=== PATIENT | female | born 1995 | race Caucasian/White ===

== ENCOUNTER 2018-06-06 07:08 | Inpatient (IN) | payer OTHER ==
[2018-06-06] MEDS ORDERED: Misoprostol 25 MCG (1/4 of 100 MCG) Tab ONE ×2 (08:05→11:34)
[2018-06-06] MEDS ORDERED: Nalbuphine 20 MG/ML 1 ML Syringe IVPUSH PRN (08:15)
[2018-06-06] MEDS ORDERED: Sodium Chloride 0.9% 10 ML Syringe FLUSH PRN (08:15)
[2018-06-06] MEDS ORDERED: Oxytocin/Lactated Ringers 10 UNIT/1,000 ML BAG IV SCH ×2 (08:15)
[2018-06-06] MEDS ORDERED: Ampicillin 2 GM in Sodium Chloride 0.9% 100 ML IV ONE (08:15)
[2018-06-06] MEDS ORDERED: Misoprostol 25 MCG (1/4 of 100 MCG) Tab VAG ONE (08:20)
--- NOTE | 2018-06-06 08:33 | PCM.LDHP ---
L&D History of Present Illness - General Date of Service: 06/06/18 Admit Problem/Dx: Patient Status Order with Admit Dx/Problem 06/06/18 08:15 Patient Status [ADT] Routine Admission Diagnosis/Problem Admission Diagnosis/Problem Source of Information: Patient History Limitations: Reports: No Limitations - History of Present Illness Introduction:: 23 y/o YOLI 06/13/2018 EGA [id number] presented to L&D for Induction of labor. GBS Positive INITIAL LABS 12/15/17 A Positive AB Screen negative H/H 13.0/37.9 Plt [id number] Rubella immune VDRL/RPR nonreactive Urine culture [id number] Garnerella vaginalis HBsAg Negative HIV Negative gc/ct PROBE NEGATIVE 03/21/2018 hGB 12.1 plt [id number] obgs 107 05/24/2018 gbs POSITIVE Pain Score: 0 - Related Data Allergies/Adverse Reactions: Allergies Allergy/AdvReac Type Severity Reaction Status Date / Time No Known Allergies Allergy Verified 11/07/13 20:34 Home Medications: Home Meds Benzocaine/Menthol [Dermoplast Pain Relief [place]] 1 canister TOP ASDIRECTED PRN #1 canister 11/17/13 [Rx] Docusate Sodium [Colace] 100 mg PO BID PRN #12 cap 11/17/13 [Rx] Ibuprofen [Motrin] 600 mg PO Q4H PRN #16 tablet 11/17/13 [Rx] Lanolin [Lansinoh HPA] 1 gm TOP ASDIRECTED PRN #1 11/17/13 [Rx] Witch Joselin [Tucks] 1 pad TOP ASDIRECTED PRN #1 pad 11/17/13 [Rx] Past Medical History HEENT History: Reports: Other (See Below) (tonsillectomy 2004) Genitourinary History: Reports: Other (See Below) (H/O UTIs in ) : 4 Para: 2 (2011) LMP (Approximate): Other (See Below) (one miscarriage) H&P Review of Systems - Review of Systems: Review Of Systems: See Below General: Reports: No Symptoms HEENT: Reports: No Symptoms Pulmonary: Reports: No Symptoms Cardiovascular: Reports: No Symptoms Gastrointestinal: Reports: No Symptoms Genitourinary: Reports: No Symptoms Musculoskeletal: Reports: No Symptoms Skin: Reports: No Symptoms Psychiatric: Reports: No Symptoms Neurological: Reports: No Symptoms Hematologic/Lymphatic: Reports: No Symptoms Immunologic: Reports: No Symptoms L&D Exam - Exam Exam: See Below - OB Specific Fundal Height In cm: 38 Movement: Active Heart Tones: Present Heart Tones per Min: 140 Heart Rate (FHR) Variability: Moderate (6-25 bmp) Presentation: Vertex - Lenz Score Lenz Score Cervix Position: Posterior Lenz Score Consistency: Soft Lenz Score Effacement: 0-30% Lenz Score Dilation: 1-2 cm Lenz Score 's Station: -3 Lenz Score Total: 3 - Exam General: Alert, Oriented HEENT: Conjunctiva Clear, Mucosa Moist & [place] Neck: Supple, Trachea Midline Lungs: Clear to Auscultation, Normal Respiratory Effort Cardiovascular: Regular Rate, Regular Rhythm GI/Abdominal Exam: Normal Bowel Sounds, Soft Genitourinary: Normal external exam Extremities: Normal Inspection, Normal Range of Motion, Non-Tender, No Pedal Edema, Normal Capillary Refill Skin: Warm, Dry, Intact Neurological: Reflexes Equal Bilateral Psychiatric: Alert, Normal Affect, Normal Mood - Problem List (1) 38 weeks gestation of SNOMED Code(s): 21677797 ICD Code: Z3A.38 - 38 WEEKS GESTATION OF Status: Acute Current Visit: Yes (2) GBS carrier SNOMED Code(s): 6240564370492 ICD 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 - CARRIER OF GROUP B STREPTOCOCCUS Status: Acute Current Visit: Yes Problem List Initiated/Reviewed/Updated: No Orders Last 24hrs: Active Orders 24 hr Category Date Time Status Patient Status [ADT] Routine ADT 06/06/18 08:15 Active Activity as Tolerated [RC] PFP Care 06/06/18 08:15 Active Communication Order [RC] ASDIRECTED Care 06/06/18 08:15 Active Heart Tones [RC] ASDIRECTED Care 06/06/18 08:16 Active Non Stress Test [RC] PER UNIT ROUTINE Care 06/06/18 08:15 Active Notify Provider [RC] PFP Care 06/06/18 08:15 Active Notify Provider [RC] PRN Care 06/06/18 08:15 Active Peripheral IV Care [RC] . DIRECTED Care 06/06/18 08:16 Active Vital Signs [RC] PER UNIT ROUTINE Care 06/06/18 08:15 Active Regular Diet [DIET] Diet 06/06/18 Breakfast Active CBC WITH AUTO DIFF [HEME] Stat Lab 06/06/18 08:15 Ordered RAPID PLASMA REAGIN,RPR [CHEM] Routine Lab 06/06/18 08:15 Ordered TYPE AND SCREEN [BBK] Stat Lab 06/06/18 08:15 Ordered Ampicillin 1 gm Med 06/06/18 12:45 Ordered Sodium Chloride 0.9% [Normal Saline] 100 ml IV Q4H Ampicillin 2 gm Med 06/06/18 08:15 Ordered Sodium Chloride 0.9% [Normal Saline] 100 ml IV ONETIME Lactated Ringers [Ringers, Lactated] 1,000 ml Med 06/06/18 08:15 Ordered IV ASDIRECTED Nalbuphine [Nubain] Med 06/06/18 08:15 Ordered 10 mg IVPUSH Q2H PRN Oxytocin/Lactated Ringers [Pitocin in LR 10 Units/1,000 Med 06/06/18 08:15 Ordered ML] 10 unit in 1,000 ml IV .CONTINUOUS Oxytocin/Lactated Ringers [Pitocin in LR 10 Units/1,000 Med 06/06/18 08:15 Ordered ML] 10 unit in 1,000 ml IV TITRATE Sodium Chloride 0.9% [Saline Flush] Med 06/06/18 08:15 Ordered 10 ml FLUSH ASDIRECTED PRN Electronic Heart Tones Ext w TOCO [WOMSER] Oth 06/06/18 08:15 Ordered Routine Electronic Heart Tones Internal [WOMSER] Per Unit Oth 06/06/18 08:15 Ordered Routine Peripheral IV Insertion Adult [OM.PC] Routine Oth 06/06/18 08:15 Ordered Resuscitation Status Routine Resus Stat 06/06/18 08:15 Ordered Assessment/Plan Comment:: Plan induction and delivery.
[2018-06-06] MEDS: Lactated Ringers 1,000 ML IV SCH ×3 (08:35→15:07)
--- NOTE | 2018-06-06 08:53 | PCM.PREANE ---
Preanesthetic Assessment - Procedure Proposed Procedure: TERRI - Anesthesia/Transfusion/Family Hx Anesthesia History: Prior Anesthesia Without Reaction Family History of Anesthesia Reaction: No Transfusion History: No Prior Transfusion(s) - Review of Systems General: No Symptoms Pulmonary: No Symptoms Cardiovascular: No Symptoms Gastrointestinal: Other (GERD with ) Neurological: No Symptoms Other: Reports: None - Physical Assessment NPO Status Date: 06/06/18 NPO Status Time: 07:00 Pulse: 102 O2 Sat by Pulse Oximetry: 98 Respiratory Rate: 20 Blood Pressure: 141/87 Temperature: 37.0 C ASA Class: 2 Mental Status: Alert & Oriented x3 Airway Class: Mallampati = 1 Dentition: Reports: Normal Dentition Thyro-Mental Finger Breadths: 3 Mouth Opening Finger Breadths: 3 ROM/Head Extension: Full Lungs: Clear to Auscultation, Normal Respiratory Effort Cardiovascular: Regular Rate, Regular Rhythm - Allergies Allergies/Adverse Reactions: Allergies Allergy/AdvReac Type Severity Reaction Status Date / Time No Known Allergies Allergy Verified 11/07/13 20:34 - Blood Blood Available: No Product(s) Available: None - Anesthesia Plan Pre-Op Medication Ordered: None - Acknowledgements Anesthesia Type Planned: Epidural Pt an Appropriate Candidate for the Planned Anesthesia: Yes Alternatives and Risks of Anesthesia Discussed w Pt/Guardian: Yes Pt/Guardian Understands and Agrees with Anesthesia Plan: Yes PreAnesthesia Questionnaire HEENT History: Reports: Other (See Below) (tonsillectomy 2004) Genitourinary History: Reports: Other (See Below) (H/O UTIs in ) - HOME MEDS Home Medications: Home Meds Benzocaine/Menthol [Dermoplast Pain Relief [place]] 1 canister TOP ASDIRECTED PRN #1 canister 11/17/13 [Rx] Docusate Sodium [Colace] 100 mg PO BID PRN #12 cap 11/17/13 [Rx] Ibuprofen [Motrin] 600 mg PO Q4H PRN #16 tablet 11/17/13 [Rx] Lanolin [Lansinoh HPA] 1 gm TOP ASDIRECTED PRN #1 11/17/13 [Rx] Witch Joselin [Tucks] 1 pad TOP ASDIRECTED PRN #1 pad 11/17/13 [Rx] - CURRENT (IN HOUSE) MEDS Current Meds: Current Medications Ampicillin Sodium 1 gm/ Sodium (Chloride) 100 mls @ 200 mls/hr IV Q4H JENNIFER Lactated Ringer's (Ringers, Lactated) 1,000 mls @ 100 mls/hr IV ASDIRECTED JENNIFER Last Admin: 06/06/18 08:35 Dose: 100 mls/hr Oxytocin/Lactated Ringer's (Pitocin In Lr 10 Units/1,000 Ml) 10 unit in 1,000 mls @ 12 mls/hr IV TITRATE JENNIFER; Protocol Oxytocin/Lactated Ringer's (Pitocin In Lr 10 Units/1,000 Ml) 10 unit in 1,000 mls @ 100 mls/hr IV .CONTINUOUS JENNIFER Nalbuphine HCl (Nubain) 10 mg IVPUSH Q2H PRN PRN Reason: pain Sodium Chloride (Saline Flush) 10 ml FLUSH ASDIRECTED PRN PRN Reason: Keep Vein Open Discontinued Medications Ampicillin Sodium 2 gm/ Sodium (Chloride) 100 mls @ 200 mls/hr IV ONETIME ONE Stop: 06/06/18 08:44 Last Admin: 06/06/18 08:35 Dose: 200 mls/hr Misoprostol (Cytotec) Confirm Administered Dose 50 mcg .ROUTE .STK-MED ONE Stop: 06/06/18 08:06 Last Admin: 06/06/18 08:35 Dose: Not Given Misoprostol (Cytotec) 25 mcg VAG ONETIME ONE Stop: 06/06/18 08:21 Last Admin: 06/06/18 08:07 Dose: 25 mcg
[2018-06-06] MEDS ORDERED: ePHEDrine 50 MG/ML SDV IVPUSH PRN (09:01)
[2018-06-06] MEDS ORDERED: fentaNYL 100 MCG/2 ML SDV EPIDUR PRN (09:01)
[2018-06-06] MEDS ORDERED: diphenhydrAMINE 50 MG/ML SDV IVPUSH PRN (09:01)
[2018-06-06] MEDS ORDERED: Ondansetron 4 MG/2 ML SDV IVPUSH PRN (09:07)
[2018-06-06] MEDS ORDERED: fentaNYL/Bupivacaine-NS 2 MCG/ML-0.125%/PF 100 ML Bag EP SCH (09:15)
--- NOTE | 2018-06-06 11:43 | PCM.SN ---
- Free Text/Narrative Note: Amniotomy at 1137, clear fluid. Cervix 2-3 cm, 30% effaced, soft, posterior. vertex -2,-2. Will begin oxytocin in an hour if no carlotta contractions. Patient planning epidural. Cat I FHR
[2018-06-06] MEDS ORDERED: Ampicillin 1 GM in Sodium Chloride 0.9% 100 ML IV SCH (12:45)
--- NOTE | 2018-06-06 14:24 | PCM.SN ---
- Free Text/Narrative Note: Patient has received her epidural which is working well. Cervix is 6 cm dilated , 85% effaced, soft, posterior, vertex -1 category 1 heart rate.
[2018-06-06] MEDS ORDERED: Lidocaine 1% 30 ML SDV INJECT ONE (16:17)
--- NOTE | 2018-06-06 16:44 | PCM.DEL ---
L & D Note - General Info Date of Service: 06/06/18 Mother's Due Date: 06/13/18 - Delivery Note Labor: Augmented by ARM, Induced by Oxytocin Cervical Ripening Method: Misoprostil (25 mcg x1) Delivery Outcome: Livebirth (Male liveborn Tuesday06/06/18 at 1610 hrs. AARON no nuchal cord weight 3590 grams 7 pounds 14.6 ounces Apgars 8/9 at one and 5 minutes respectively) Infant Delivery Method: Spontaneous Vaginal Delivery-Single Delivery Mode: Spontaneous Presentation: Left Occiput Anterior (AARON) Nuchal Cord: None Prep: Povidone-Iodine (Betadine Anesthesia Type: Epidural Amniotic Fluid Description: Clear Episiotomy Type: None Laceration: 1st Degree (Left and superior to the urethral meatus, catheter placed in urethral meatus during repair to avoid damaging urethra. Urine clear and yellow.) Suture type: Other (Monocryl 3-0) Suture size: 3-0 Placenta: Intact, Spontaneous (1613 hrs. on Tuesday06/06/18 examined and intact) Cord: 3 Vessels Estimated Blood Loss: 500 Resuscitation Needed: No : Suctioned, Bulb Syringe, Stimulated, Warmed, [place] Used, Warmer Used Provider: Kostas Thurman Score 1 min: 8 Score 5 min: 9 - General Info Date of Service: 06/06/18 Functional Status: Reports: Pain Controlled - Review of Systems General: Reports: No Symptoms HEENT: Reports: No Symptoms Pulmonary: Reports: No Symptoms Cardiovascular: Reports: No Symptoms Gastrointestinal: Reports: No Symptoms Genitourinary: Reports: No Symptoms Musculoskeletal: Reports: No Symptoms Skin: Reports: No Symptoms Neurological: Reports: No Symptoms Psychiatric: Reports: No Symptoms - Patient Data Vitals - Most Recent: Last Vital Signs Temp 98.6 F 06/06/18 08:54 Pulse 102 H 06/06/18 08:54 Resp 20 06/06/18 08:54 BP 141/87 H 06/06/18 08:54 Pulse Ox 98 06/06/18 08:54 Weight - Most Recent: 167 lb I&O - Last 24 Hours: Intake & Output 06/06/18 06/06/18 06/06/18 06:59 14:59 22:59 Intake Total 320 Balance 320 Lab Results Last 24 Hours: Laboratory Results - last 24 hr 06/06/18 06/06/18 06/06/18 Range/Units 08:47 08:47 08:47 WBC 8.10 (3.98-10.04) K/mm3 RBC 4.00 (3.98-5.22) M/mm3 Hgb 11.5 (11.2-15.7) gm/L Hct 34.7 (34.1-44.9) % MCV 86.8 (79.4-94.8) fl MCH 28.8 (25.6-32.2) pg MCHC 33.1 (32.2-35.5) g/dl RDW Std Deviation 38.8 (36.4-46.3) fL Plt Count 142 L (182-369) K/mm3 MPV 10.7 (9.4-12.3) fl Neut % (Auto) 67.3 (34.0-71.1) % Lymph % (Auto) 22.0 (19.3-51.7) % [place] % (Auto) 9.4 (4.7-12.5) % Eos % (Auto) 1.0 (0.7-5.8) Baso % (Auto) 0.1 (0.1-1.2) % Neut # (Auto) 5.45 (1.56-6.13) K/mm3 Lymph # (Auto) 1.78 (1.18-3.74) K/mm3 [place] # (Auto) 0.76 H (0.24-0.36) K/mm3 Eos # (Auto) 0.08 (0.04-0.36) K/mm3 Baso # (Auto) 0.01 (0.01-0.08) K/mm3 RPR Non-reactive (NONREACTIVE) Blood Type A POSITIVE Gel Antibody Screen Negative Med Orders - Current: Current Medications Diphenhydramine HCl (Benadryl) 25 mg IVPUSH Q6H PRN PRN Reason: Pruritis Ephedrine Sulfate (Ephedrine Sulfate) 5 mg IVPUSH ASDIRECTED PRN PRN Reason: Hypotension Fentanyl (Sublimaze) 100 mcg EPIDUR Q3H PRN PRN Reason: Pain Last Admin: 06/06/18 14:02 Dose: 100 mcg Fentanyl/Bupivacaine HCl ([place]akdsefu-Rkfqs-Ro 2 Mcg/Ml-0.125%) 100 ml EP ASDIRECTED JENNIFER Last Admin: 06/06/18 14:03 Dose: 100 ml Ampicillin Sodium 1 gm/ Sodium (Chloride) 100 mls @ 200 mls/hr IV Q4H JENNIFER Last Admin: 06/06/18 12:51 Dose: 200 mls/hr Lactated Ringer's (Ringers, Lactated) 1,000 mls @ 100 mls/hr IV ASDIRECTED JENNIFER Last Admin: 06/06/18 15:07 Dose: 100 mls/hr Oxytocin/Lactated Ringer's (Pitocin In Lr 10 Units/1,000 Ml) 10 unit in 1,000 mls @ 12 mls/hr IV TITRATE JENNIFER; Protocol Last Admin: 06/06/18 15:09 Dose: 2 munits/min, 12 mls/hr Oxytocin/Lactated Ringer's (Pitocin In Lr 10 Units/1,000 Ml) 10 unit in 1,000 mls @ 100 mls/hr IV .CONTINUOUS JENNIFER Nalbuphine HCl (Nubain) 10 mg IVPUSH Q2H PRN PRN Reason: pain Ondansetron HCl (Zofran) 4 mg IVPUSH ONETIME PRN PRN Reason: Nausea/Vomiting Sodium Chloride (Saline Flush) 10 ml FLUSH ASDIRECTED PRN PRN Reason: Keep Vein Open Discontinued Medications Ampicillin Sodium 2 gm/ Sodium (Chloride) 100 mls @ 200 mls/hr IV ONETIME ONE Stop: 06/06/18 08:44 Last Admin: 06/06/18 08:35 Dose: 200 mls/hr Lidocaine HCl (Xylocaine-Mpf 1%) 50 ml INJECT ONETIME ONE Stop: 06/06/18 16:18 Misoprostol (Cytotec) Confirm Administered Dose 50 mcg .ROUTE .STK-MED ONE Stop: 06/06/18 08:06 Last Admin: 06/06/18 08:35 Dose: Not Given Misoprostol (Cytotec) 25 mcg VAG ONETIME ONE Stop: 06/06/18 08:21 Last Admin: 06/06/18 08:07 Dose: 25 mcg Misoprostol (Cytotec) Confirm Administered Dose 25 mcg .ROUTE .STK-MED ONE Stop: 06/06/18 11:35 - Exam General: Alert, Oriented HEENT: Pupils Equal, Mucous Membr. Moist/[place] Neck: Supple Lungs: Clear to Auscultation, Normal Respiratory Effort Cardiovascular: Regular Rate, Regular Rhythm GI/Abdominal Exam: Normal Bowel Sounds (Female) Exam: Normal External Exam Extremities: Normal Inspection, Normal Range of Motion, Non-Tender, No Pedal Edema, Normal Capillary Refill Skin: Warm, Dry, Intact Psy/Mental Status: Alert, Normal Affect, Normal Mood - Problem List & Annotations (1) 38 weeks gestation of SNOMED Code(s): 43410877 Code(s): Z3A.38 - 38 WEEKS GESTATION OF Status: Acute Current Visit: Yes (2) GBS carrier SNOMED Code(s): 4843143465908 Code(s): Z22.330 - CARRIER OF GROUP B STREPTOCOCCUS Status: Acute Current Visit: Yes (3) Encounter for full-term uncomplicated delivery SNOMED Code(s): 09874640, 698503892 Code(s): O80 - ENCOUNTER FOR FULL-TERM UNCOMPLICATED DELIVERY Status: Acute Current Visit: Yes (4) First degree perineal laceration SNOMED Code(s): 00989970 Code(s): O70.0 - FIRST DEGREE PERINEAL LACERATION DURING DELIVERY Status: Acute Current Visit: Yes - Problem List Review Problem List Initiated/Reviewed/Updated: No - My Orders Last 24 Hours: My Active Orders 06/06/18 08:15 Patient Status [ADT] Routine Activity as Tolerated [RC] PFP Communication Order [RC] ASDIRECTED Non Stress Test [RC] PER UNIT ROUTINE Notify Provider [RC] PFP Notify Provider [RC] PRN Vital Signs [RC] PER UNIT ROUTINE Lactated Ringers [Ringers, Lactated] 1,000 ml IV ASDIRECTED Nalbuphine [Nubain] 10 mg IVPUSH Q2H PRN Oxytocin/Lactated Ringers [Pitocin in LR 10 Units/1,000 ML] 10 unit in 1,000 ml IV .CONTINUOUS Oxytocin/Lactated Ringers [Pitocin in LR 10 Units/1,000 ML] 10 unit in 1,000 ml IV TITRATE Sodium Chloride 0.9% [Saline Flush] 10 ml FLUSH ASDIRECTED PRN Electronic Heart Tones Ext w TOCO [WOMSER] Routine Electronic Heart Tones Internal [WOMSER] Per Unit Routine Peripheral IV Insertion Adult [OM.PC] Routine Resuscitation Status Routine 06/06/18 08:16 Heart Tones [RC] ASDIRECTED Peripheral IV Care [RC] . DIRECTED 06/06/18 12:45 Ampicillin 1 gm Sodium Chloride 0.9% [Normal Saline] 100 ml IV Q4H 06/06/18 Breakfast Regular Diet [DIET] - Plan Plan:: Plan induction and delivery.
[2018-06-06] MEDS ORDERED: Benzocaine/Menthol 20%-0.5% Spray 56 GM Canister TOP PRN (16:53)
[2018-06-06] MEDS ORDERED: Witch Hazel Medicated Pads 100/Jar TOP PRN (16:53)
[2018-06-06] MEDS ORDERED: Acetaminophen/oxyCODONE 325-5 MG Tab PO PRN (16:53)
[2018-06-06] MEDS ORDERED: Acetaminophen 325 MG Tab PO PRN (16:53)
[2018-06-06] MEDS ORDERED: Docusate Sodium 100 MG Cap PO PRN (16:53)
[2018-06-06] MEDS ORDERED: Ibuprofen 600 MG Tab PO PRN (16:53)
[2018-06-06] MEDS ORDERED: Lanolin 100% Cream 7 GM Tube TOP PRN (16:53)
[2018-06-06] MEDS ORDERED: Misoprostol 200 MCG Tab PO ONE (17:20)
[2018-06-06] MEDS: Misoprostol 200 MCG Tab PO SCH (19:01)
[2018-06-06] MEDS ORDERED: Lidocaine 1.5% with EPINEPHrine 1:200,000 5 ML Amp ONE (22:00)
[2018-06-06] MEDS ORDERED: Bupivacaine 0.25% 10 ML SDV ONE (22:00)
[2018-06-07] MEDS: Misoprostol 200 MCG Tab PO SCH (00:56)
--- NOTE | 2018-06-07 08:08 | PCM.DCSUM1 ---
Discharge Summary - Hospital Course Free Text/Narrative:: [facility] LIVE L/D Delivery Note Patient Name: GALO SMTIH Date of : 89 Patient Status: Inpatient Attending Provider: Kostas Thurman Date: 06/06/18 16:35 Initialization Date: 06/06/18 16:35 L & D Note - General Info Date of Service: 06/06/18 Mother's Due Date: 06/13/18 - Delivery Note Labor: Augmented by ARM, Induced by Oxytocin Cervical Ripening Method: Misoprostil (25 mcg x1) Delivery Outcome: Livebirth (Male liveborn Tuesday06/06/18 at 1610 hrs. AARON no nuchal cord weight 3590 grams 7 pounds 14.6 ounces Apgars 8/9 at one and 5 minutes respectively) Delivery Method: Spontaneous Vaginal Delivery-Single Infant Delivery Mode: Spontaneous Presentation: Left Occiput Anterior (AARON) Nuchal Cord: None Prep: Povidone-Iodine (Betadine Anesthesia Type: Epidural Amniotic Fluid Description: Clear Episiotomy Type: None Laceration: 1st Degree (Left and superior to the urethral meatus, catheter placed in urethral meatus during repair to avoid damaging urethra. Urine clear and yellow.) Suture type: Other (Monocryl 3-0) Suture size: 3-0 Placenta: Intact, Spontaneous (1613 hrs. on Tuesday06/06/18 examined and intact) Cord: 3 Vessels Estimated Blood Loss: 500 Resuscitation Needed: No [place]: Suctioned, Bulb Syringe, Stimulated, Warmed, [place] Used, Warmer Used Provider: Kostas Thurman Score 1 min: 8 Score 5 min: 9 - General Info Date of Service: 06/06/18 Functional Status: Reports: Pain Controlled - Review of Systems General: Reports: No Symptoms HEENT: Reports: No Symptoms Pulmonary: Reports: No Symptoms Cardiovascular: Reports: No Symptoms Gastrointestinal: Reports: No Symptoms Genitourinary: Reports: No Symptoms Musculoskeletal: Reports: No Symptoms Skin: Reports: No Symptoms Neurological: Reports: No Symptoms Psychiatric: Reports: No Symptoms - Patient Data Vitals - Most Recent: Last Vital Signs Temp 98.6 F 02/12/19 08:54 Pulse 102 H 06/06/18 08:54 Resp 20 06/06/18 08:54 BP 141/87 H 06/06/18 08:54 Pulse Ox 98 06/06/18 08:54 Weight - Most Recent: 167 lb I&O - Last 24 Hours: Intake & Output 06/06/18 06/06/18 06/06/18 06:59 14:59 22:59 Intake Total 320 Balance 320 Lab Results Last 24 Hours: Laboratory Results - last 24 hr 06/06/18 06/06/18 06/06/18 Range/Units 08:47 08:47 08:47 WBC 8.10 (3.98-10.04) K/mm3 RBC 4.00 (3.98-5.22) M/mm3 Hgb 11.5 (11.2-15.7) gm/L Hct 34.7 (34.1-44.9) % MCV 86.8 (79.4-94.8) fl MCH 28.8 (25.6-32.2) pg MCHC 33.1 (32.2-35.5) g/dl RDW Std Deviation 38.8 (36.4-46.3) fL Plt Count 142 L (182-369) K/mm3 MPV 10.7 (9.4-12.3) fl Neut % (Auto) 67.3 (34.0-71.1) % Lymph % (Auto) 22.0 (19.3-51.7) % [place] % (Auto) 9.4 (4.7-12.5) % Eos % (Auto) 1.0 (0.7-5.8) Baso % (Auto) 0.1 (0.1-1.2) % Neut # (Auto) 5.45 (1.56-6.13) K/mm3 Lymph # (Auto) 1.78 (1.18-3.74) K/mm3 [place] # (Auto) 0.76 H (0.24-0.36) K/mm3 Eos # (Auto) 0.08 (0.04-0.36) K/mm3 Baso # (Auto) 0.01 (0.01-0.08) K/mm3 RPR Non-reactive (NONREACTIVE) Blood Type A POSITIVE Gel Antibody Screen Negative Med Orders - Current: Current Medications Diphenhydramine HCl (Benadryl) 25 mg IVPUSH Q6H PRN PRN Reason: Pruritis Ephedrine Sulfate (Ephedrine Sulfate) 5 mg IVPUSH ASDIRECTED PRN PRN Reason: Hypotension Fentanyl (Sublimaze) 100 mcg EPIDUR Q3H PRN PRN Reason: Pain Last Admin: 06/06/18 14:02 Dose: 100 mcg Fentanyl/Bupivacaine HCl (Lfyqedrd-Zcgrh-Jn 2 Mcg/Ml-0.125%) 100 ml EP ASDIRECTED JENNIFER Last Admin: 06/06/18 14:03 Dose: 100 ml Ampicillin Sodium 1 gm/ Sodium (Chloride) 100 mls @ 200 mls/hr IV Q4H JENNIFER Last Admin: 06/06/18 12:51 Dose: 200 mls/hr Lactated Ringer's (Ringers, Lactated) 1,000 mls @ 100 mls/hr IV ASDIRECTED JENNIFER Last Admin: 06/06/18 15:07 Dose: 100 mls/hr Oxytocin/Lactated Ringer's (Pitocin In Lr 10 Units/1,000 Ml) 10 unit in 1,000 mls @ 12 mls/hr IV TITRATE JENNIFER; Protocol Last Admin: 06/06/18 15:09 Dose: 2 munits/min, 12 mls/hr Oxytocin/Lactated Ringer's (Pitocin In Lr 10 Units/1,000 Ml) 10 unit in 1,000 mls @ 100 mls/hr IV .CONTINUOUS JENNIFER Nalbuphine HCl (Nubain) 10 mg IVPUSH Q2H PRN PRN Reason: pain Ondansetron HCl (Zofran) 4 mg IVPUSH ONETIME PRN PRN Reason: Nausea/Vomiting Sodium Chloride (Saline Flush) 10 ml FLUSH ASDIRECTED PRN PRN Reason: Keep Vein Open Discontinued Medications Ampicillin Sodium 2 gm/ Sodium (Chloride) 100 mls @ 200 mls/hr IV ONETIME ONE Stop: 06/06/18 08:44 Last Admin: 06/06/18 08:35 Dose: 200 mls/hr Lidocaine HCl (Xylocaine-Mpf 1%) 50 ml INJECT ONETIME ONE Stop: 06/06/18 16:18 Misoprostol (Cytotec) Confirm Administered Dose 50 mcg .ROUTE .STK-MED ONE Stop: 06/06/18 08:06 Last Admin: 06/06/18 08:35 Dose: Not Given Misoprostol (Cytotec) 25 mcg VAG ONETIME ONE Stop: 06/06/18 08:21 Last Admin: 06/06/18 08:07 Dose: 25 mcg Misoprostol (Cytotec) Confirm Administered Dose 25 mcg .ROUTE .STK-MED ONE Stop: 06/06/18 11:35 - Exam General: Alert, Oriented HEENT: Pupils Equal, Mucous Membr. Moist/Esko Neck: Supple Lungs: Clear to Auscultation, Normal Respiratory Effort Cardiovascular: Regular Rate, Regular Rhythm GI/Abdominal Exam: Normal Bowel Sounds (Female) Exam: Normal External Exam Extremities: Normal Inspection, Normal Range of Motion, Non-Tender, No Pedal Edema, Normal Capillary Refill Skin: Warm, Dry, Intact Psy/Mental Status: Alert, Normal Affect, Normal Mood - Problem List & Annotations (1) 38 weeks gestation of SNOMED Code(s): 49623980 Code(s): Z3A.38 - 38 WEEKS GESTATION OF Status: Acute Current Visit: Yes (2) GBS carrier SNOMED Code(s): 3443756156349 Code(s): Z22.330 - CARRIER OF GROUP B STREPTOCOCCUS Status: Acute Current Visit: Yes (3) Encounter for full-term uncomplicated delivery SNOMED Code(s): 13879848, 372381867 Code(s): O80 - ENCOUNTER FOR FULL-TERM UNCOMPLICATED DELIVERY Status: Acute Current Visit: Yes (4) First degree perineal laceration SNOMED Code(s): 58059254 Code(s): O70.0 - FIRST DEGREE PERINEAL LACERATION DURING DELIVERY Status: Acute Current Visit: Yes - Problem List Review Problem List Initiated/Reviewed/Updated: No - My Orders Last 24 Hours: My Active Orders 06/06/18 08:15 Patient Status [ADT] Routine Activity as Tolerated [RC] PFP Communication Order [RC] ASDIRECTED Non Stress Test [RC] PER UNIT ROUTINE Notify Provider [RC] PFP Notify Provider [RC] PRN Vital Signs [RC] PER UNIT ROUTINE Lactated Ringers [Ringers, Lactated] 1,000 ml IV ASDIRECTED Nalbuphine [Nubain] 10 mg IVPUSH Q2H PRN Oxytocin/Lactated Ringers [Pitocin in LR 10 Units/1,000 ML] 10 unit in 1,000 ml IV .CONTINUOUS Oxytocin/Lactated Ringers [Pitocin in LR 10 Units/1,000 ML] 10 unit in 1,000 ml IV TITRATE Sodium Chloride 0.9% [Saline Flush] 10 ml FLUSH ASDIRECTED PRN Electronic Heart Tones Ext w TOCO [WOMSER] Routine Electronic Heart Tones Internal [WOMSER] Per Unit Routine Peripheral IV Insertion Adult [OM.PC] Routine Resuscitation Status Routine 06/06/18 08:16 Heart Tones [RC] ASDIRECTED Peripheral IV Care [RC] . DIRECTED 06/06/18 12:45 Ampicillin 1 gm Sodium Chloride 0.9% [Normal Saline] 100 ml IV Q4H 06/06/18 Breakfast Regular Diet [DIET] - Plan Plan:: Plan induction and delivery. HPI Initial Comments: [facility] LIVE L/D Delivery Note Patient Name: GALO SMITH Date of : 89 Patient Status: Inpatient Attending Provider: Kostas Thurman Date: 06/06/18 16:35 Initialization Date: 06/06/18 16:35 L & D Note - General Info Date of Service: 06/06/18 Mother's Due Date: 06/13/18 - Delivery Note Labor: Augmented by ARM, Induced by Oxytocin Cervical Ripening Method: Misoprostil (25 mcg x1) Delivery Outcome: Livebirth (Male liveborn Tuesday06/06/18 at 1610 hrs. AARON no nuchal cord weight 3590 grams 7 pounds 14.6 ounces Apgars 8/9 at one and 5 minutes respectively) Infant Delivery Method: Spontaneous Vaginal Delivery-Single Delivery Mode: Spontaneous Presentation: Left Occiput Anterior (AARON) Nuchal Cord: None Prep: Povidone-Iodine (Betadine Anesthesia Type: Epidural Amniotic Fluid Description: Clear Episiotomy Type: None Laceration: 1st Degree (Left and superior to the urethral meatus, catheter placed in urethral meatus during repair to avoid damaging urethra. Urine clear and yellow.) Suture type: Other (Monocryl 3-0) Suture size: 3-0 Placenta: Intact, Spontaneous (1613 hrs. on Tuesday06/06/18 examined and intact) Cord: 3 Vessels Estimated Blood Loss: 500 Resuscitation Needed: No [place]: Suctioned, Bulb Syringe, Stimulated, Warmed, [place] Used, Warmer Used Provider: Kostas Thurman Score 1 min: 8 Score 5 min: 9 - General Info Date of Service: 06/06/18 Functional Status: Reports: Pain Controlled - Review of Systems General: Reports: No Symptoms HEENT: Reports: No Symptoms Pulmonary: Reports: No Symptoms Cardiovascular: Reports: No Symptoms Gastrointestinal: Reports: No Symptoms Genitourinary: Reports: No Symptoms Musculoskeletal: Reports: No Symptoms Skin: Reports: No Symptoms Neurological: Reports: No Symptoms Psychiatric: Reports: No Symptoms - Patient Data Vitals - Most Recent: Last Vital Signs Temp 98.6 F 06/06/18 08:54 Pulse 102 H 06/06/18 08:54 Resp 20 06/06/18 08:54 BP 141/87 H 06/06/18 08:54 Pulse Ox 98 06/06/18 08:54 Weight - Most Recent: 167 lb I&O - Last 24 Hours: Intake & Output 06/06/18 06/06/18 06/06/18 06:59 14:59 22:59 Intake Total 320 Balance 320 Lab Results Last 24 Hours: Laboratory Results - last 24 hr 06/06/18 06/06/18 06/06/18 Range/Units 08:47 08:47 08:47 WBC 8.10 (3.98-10.04) K/mm3 RBC 4.00 (3.98-5.22) M/mm3 Hgb 11.5 (11.2-15.7) gm/L Hct 34.7 (34.1-44.9) % MCV 86.8 (79.4-94.8) fl MCH 28.8 (25.6-32.2) pg MCHC 33.1 (32.2-35.5) g/dl RDW Std Deviation 38.8 (36.4-46.3) fL Plt Count 142 L (182-369) K/mm3 MPV 10.7 (9.4-12.3) fl Neut % (Auto) 67.3 (34.0-71.1) % Lymph % (Auto) 22.0 (19.3-51.7) % [place] % (Auto) 9.4 (4.7-12.5) % Eos % (Auto) 1.0 (0.7-5.8) Baso % (Auto) 0.1 (0.1-1.2) % Neut # (Auto) 5.45 (1.56-6.13) K/mm3 Lymph # (Auto) 1.78 (1.18-3.74) K/mm3 [place] # (Auto) 0.76 H (0.24-0.36) K/mm3 Eos # (Auto) 0.08 (0.04-0.36) K/mm3 Baso # (Auto) 0.01 (0.01-0.08) K/mm3 RPR Non-reactive (NONREACTIVE) Blood Type A POSITIVE Gel Antibody Screen Negative Med Orders - Current: Current Medications Diphenhydramine HCl (Benadryl) 25 mg IVPUSH Q6H PRN PRN Reason: Pruritis Ephedrine Sulfate (Ephedrine Sulfate) 5 mg IVPUSH ASDIRECTED PRN PRN Reason: Hypotension Fentanyl (Sublimaze) 100 mcg EPIDUR Q3H PRN PRN Reason: Pain Last Admin: 06/06/18 14:02 Dose: 100 mcg Fentanyl/Bupivacaine HCl (Eqwzsvhd-Qcuiz-Fe 2 Mcg/Ml-0.125%) 100 ml EP ASDIRECTED JENNIFER Last Admin: 06/06/18 14:03 Dose: 100 ml Ampicillin Sodium 1 gm/ Sodium (Chloride) 100 mls @ 200 mls/hr IV Q4H JENNIFER Last Admin: 06/06/18 12:51 Dose: 200 mls/hr Lactated Ringer's (Ringers, Lactated) 1,000 mls @ 100 mls/hr IV ASDIRECTED JENNIFER Last Admin: 06/06/18 15:07 Dose: 100 mls/hr Oxytocin/Lactated Ringer's (Pitocin In Lr 10 Units/1,000 Ml) 10 unit in 1,000 mls @ 12 mls/hr IV TITRATE JENNIFER; Protocol Last Admin: 06/06/18 15:09 Dose: 2 munits/min, 12 mls/hr Oxytocin/Lactated Ringer's (Pitocin In Lr 10 Units/1,000 Ml) 10 unit in 1,000 mls @ 100 mls/hr IV .CONTINUOUS JENNIFER Nalbuphine HCl (Nubain) 10 mg IVPUSH Q2H PRN PRN Reason: pain Ondansetron HCl (Zofran) 4 mg IVPUSH ONETIME PRN PRN Reason: Nausea/Vomiting Sodium Chloride (Saline Flush) 10 ml FLUSH ASDIRECTED PRN PRN Reason: Keep Vein Open Discontinued Medications Ampicillin Sodium 2 gm/ Sodium (Chloride) 100 mls @ 200 mls/hr IV ONETIME ONE Stop: 06/06/18 08:44 Last Admin: 06/06/18 08:35 Dose: 200 mls/hr Lidocaine HCl (Xylocaine-Mpf 1%) 50 ml INJECT ONETIME ONE Stop: 06/06/18 16:18 Misoprostol (Cytotec) Confirm Administered Dose 50 mcg .ROUTE .STK-MED ONE Stop: 06/06/18 08:06 Last Admin: 06/06/18 08:35 Dose: Not Given Misoprostol (Cytotec) 25 mcg VAG ONETIME ONE Stop: 06/06/18 08:21 Last Admin: 06/06/18 08:07 Dose: 25 mcg Misoprostol (Cytotec) Confirm Administered Dose 25 mcg .ROUTE .STK-MED ONE Stop: 06/06/18 11:35 - Exam General: Alert, Oriented HEENT: Pupils Equal, Mucous Membr. Moist/Esko Neck: Supple Lungs: Clear to Auscultation, Normal Respiratory Effort Cardiovascular: Regular Rate, Regular Rhythm GI/Abdominal Exam: Normal Bowel Sounds (Female) Exam: Normal External Exam Extremities: Normal Inspection, Normal Range of Motion, Non-Tender, No Pedal Edema, Normal Capillary Refill Skin: Warm, Dry, Intact Psy/Mental Status: Alert, Normal Affect, Normal Mood - Problem List & Annotations (1) 38 weeks gestation of SNOMED Code(s): 53279461 Code(s): Z3A.38 - 38 WEEKS GESTATION OF Status: Acute Current Visit: Yes (2) GBS carrier SNOMED Code(s): 6609457826428 Code(s): Z22.330 - CARRIER OF GROUP B STREPTOCOCCUS Status: Acute Current Visit: Yes (3) Encounter for full-term uncomplicated delivery SNOMED Code(s): 97746976, 734599997 Code(s): O80 - ENCOUNTER FOR FULL-TERM UNCOMPLICATED DELIVERY Status: Acute Current Visit: Yes (4) First degree perineal laceration SNOMED Code(s): 85824148 Code(s): O70.0 - FIRST DEGREE PERINEAL LACERATION DURING DELIVERY Status: Acute Current Visit: Yes - Problem List Review Problem List Initiated/Reviewed/Updated: No - My Orders Last 24 Hours: My Active Orders 06/06/18 08:15 Patient Status [ADT] Routine Activity as Tolerated [RC] PFP Communication Order [RC] ASDIRECTED Non Stress Test [RC] PER UNIT ROUTINE Notify Provider [RC] PFP Notify Provider [RC] PRN Vital Signs [RC] PER UNIT ROUTINE Lactated Ringers [Ringers, Lactated] 1,000 ml IV ASDIRECTED Nalbuphine [Nubain] 10 mg IVPUSH Q2H PRN Oxytocin/Lactated Ringers [Pitocin in LR 10 Units/1,000 ML] 10 unit in 1,000 ml IV .CONTINUOUS Oxytocin/Lactated Ringers [Pitocin in LR 10 Units/1,000 ML] 10 unit in 1,000 ml IV TITRATE Sodium Chloride 0.9% [Saline Flush] 10 ml FLUSH ASDIRECTED PRN Electronic Heart Tones Ext w TOCO [WOMSER] Routine Electronic Heart Tones Internal [WOMSER] Per Unit Routine Peripheral IV Insertion Adult [OM.PC] Routine Resuscitation Status Routine 06/06/18 08:16 Heart Tones [RC] ASDIRECTED Peripheral IV Care [RC] . DIRECTED 06/06/18 12:45 Ampicillin 1 gm Sodium Chloride 0.9% [Normal Saline] 100 ml IV Q4H 06/06/18 Breakfast Regular Diet [DIET] - Plan Plan:: Plan induction and delivery. Brief History: [facility] LIVE . L/D Delivery Note. Patient [facility] Number: [id number]. Date of : Patient Status: Inpatient. Attending Provider: Kostas Thurman Number: [id number]. Date: 06/06/18 16:35Initialization Date: 06/06/18 16:35. L & D Note. - General Info. Date of Service: 06/06/18. Mother's Due Date: 06/13/18. - Delivery Note. Labor: Augmented by ARM, Induced by Oxytocin. Cervical Ripening Method: Misoprostil (25 mcg x1). Delivery Outcome: Livebirth (Male liveborn Tuesday06/06/18 at 1610 hrs. AARON no nuchal cord weight 3590 grams 7 pounds 14.6 ounces Apgars 8/9 at one and 5 minutes respectively). Delivery Method: Spontaneous Vaginal Delivery-Single. Infant Delivery Mode: Spontaneous. Presentation: Left Occiput Anterior (AARON). Nuchal Cord: None. Prep: Povidone-Iodine (Betadine. Anesthesia Type: Epidural. Amniotic Fluid Description: Clear. Episiotomy Type: None. Laceration: 1st Degree (Left and superior to the urethral meatus, catheter placed in urethral meatus during repair to avoid damaging urethra. Urine clear and yellow.). Suture type: Other (Monocryl 3-0). Suture size: 3-0. Placenta: Intact, Spontaneous (1613 hrs. on Tuesday06/06/18 examined and intact). Cord: 3 Vessels. Estimated Blood Loss: 500. Resuscitation Needed: No. : Suctioned, Bulb Syringe, Stimulated, Warmed, [place] Used, Warmer Used. Provider: Kostas Thurman. Score 1 min: 8. Score 5 min : 9. - General Info. Date of Service: 06/06/18. Functional Status: Reports: Pain Controlled. - Review of Systems. General: Reports: No Symptoms. HEENT: Reports: No Symptoms. Pulmonary: Reports: No Symptoms. Cardiovascular: Reports : No Symptoms. Gastrointestinal: Reports: No Symptoms. Genitourinary: Reports : No Symptoms. Musculoskeletal: Reports: No Symptoms. Skin: Reports: No Symptoms. Neurological: Reports: No Symptoms. Psychiatric: Reports: No Symptoms. - Patient Data. Vitals - Most Recent: Last Vital Signs. Temp 98.6 F 06/06/18 08:54. Pulse 102 H 06/06/18 08:54. Resp 20 06/06/18 08:54. BP 141/87 H 06/06/18 08:54. Pulse Ox 98 06/06/18 08:54. Weight - Most Recent: 167 lb. I&O - Last 24 Hours: Intake & Output. 06/06/190103/1902. 06: 5914:5922:59. Intake [id number]. [id number]. Lab Results Last 24 Hours: Laboratory Results - last 24 hr. 06/06/1901/03/1902/04/12Range/Units. 08:4708: 4708:47. WBC 8.10 (3.98-10.04) K/mm3. RBC 4.00 (3.98-5.22) M/mm3. Hgb 11.5 (11.2-15.7) gm/L. Hct 34.7 (34.1-44.9) %. MCV 86.8 (79.4-94.8) fl. MCH 28.8 (25.6-32.2) pg. MCHC 33.1 (32.2-35.5) g/dl. RDW Std Deviation 38.8 ( 36.4-46.3) fL. Plt Count 142 L (182-369) K/mm3. MPV 10.7 (9.4-12.3) fl. Neut % (Auto) 67.3 (34.0-71.1) %. Lymph % (Auto) 22.0 (19.3-51.7) %. [place] % (Auto) 9.4 (4.7-12.5) %. Eos % (Auto) 1.0 (0.7-5.8). Baso % (Auto) 0.1 (0.1- 1.2) %. Neut # (Auto) 5.45 (1.56-6.13) K/mm3. Lymph # (Auto) 1.78 (1.18-3.74 ) K/mm3. [place] # (Auto) 0.76 H (0.24-0.36) K/mm3. Eos # (Auto) 0.08 (0.04- 0.36) K/mm3. Baso # (Auto) 0.01 (0.01-0.08) K/mm3. RPR Non-reactive ( NONREACTIVE). Blood Type A POSITIVE. Gel Antibody Screen Negative. Med Orders - Current: Current Medications. Diphenhydramine HCl (Benadryl) 25 mg IVPUSH Q6H PRN. PRN Reason: Pruritis. Ephedrine Sulfate (Ephedrine Sulfate) 5 mg IVPUSH ASDIRECTED PRN. PRN Reason: Hypotension. Fentanyl (Sublimaze) 100 mcg EPIDUR Q3H PRN. PRN Reason: Pain. Last Admin: 06/06/18 14:02 Dose: 100 mcg. Fentanyl/Bupivacaine HCl (Ksjzazpi-Elnpr-Oo 2 Mcg/Ml-0.125%) 100 ml EP ASDIRECTED JENNIFER. Last Admin: 06/06/18 14:03 Dose: 100 ml. Ampicillin Sodium 1 gm/ Sodium (Chloride) 100 mls @ 200 mls/hr IV Q4H JENNIFER. Last Admin: 12:51 Dose: 200 mls/hr. Lactated Ringer's (Ringers, Lactated) 1,000 mls @ 100 mls/hr IV ASDIRECTED JENNIFER. Last Admin: 06/06/18 15:07 Dose: 100 mls/ hr. Oxytocin/Lactated Ringer's (Pitocin In Lr 10 Units/1,000 Ml) 10 unit in 1, 000 mls @ 12 mls/hr IV TITRATE JENNIFER; Protocol. Last Admin: 06/06/18 15:09 Dose: 2 munits/min, 12 mls/hr. Oxytocin/Lactated Ringer's (Pitocin In Lr 10 Units/1 ,000 Ml) 10 unit in 1,000 mls @ 100 mls/hr IV .CONTINUOUS JENNIFER. Nalbuphine HCl (Nubain) 10 mg IVPUSH Q2H PRN. PRN Reason: pain. Ondansetron HCl (Zofran) 4 mg IVPUSH ONETIME PRN. PRN Reason: Nausea/Vomiting. Sodium Chloride (Saline Flush) 10 ml FLUSH ASDIRECTED PRN. PRN Reason: Keep Vein Open. Discontinued Medications. Ampicillin Sodium 2 gm/ Sodium (Chloride) 100 mls @ 200 mls/hr IV ONETIME ONE. Stop: 06/06/18 08:44. Last Admin: 06/06/18 08:35 Dose: 200 mls/hr. Lidocaine HCl (Xylocaine-Mpf 1%) 50 ml INJECT ONETIME ONE. Stop: 04/12 16:18. Misoprostol (Cytotec) Confirm Administered Dose 50 mcg .ROUTE .STK -MED ONE. Stop: 06/06/18 08:06. Last Admin: 06/06/18 08:35 Dose: Not Given. Misoprostol (Cytotec) 25 mcg VAG ONETIME ONE. Stop: 06/06/18 08:21. Last Admin: 06/06/18 08:07 Dose: 25 mcg. Misoprostol (Cytotec) Confirm Administered Dose 25 mcg .ROUTE .STK-MED ONE. Stop: 06/06/18 11:35. - Exam. General: Alert, Oriented. HEENT: Pupils Equal, Mucous Membr. Moist/Esko. Neck : Supple. Lungs: Clear to Auscultation, Normal Respiratory Effort. Cardiovascular: Regular Rate, Regular Rhythm. GI/Abdominal Exam: Normal Bowel Sounds. (Female) Exam: Normal External Exam. Extremities: Normal Inspection , Normal Range of Motion, Non-Tender, No Pedal Edema, Normal Capillary Refill. Skin: Warm, Dry, Intact. Psy/Mental Status: Alert, Normal Affect, Normal Mood. - Problem List & Annotations. (1) 38 weeks gestation of . SNOMED Code(s): 24883423. Code(s): Z3A.38 - 38 WEEKS GESTATION OF Status: Acute Current Visit: Yes. (2) GBS carrier. SNOMED Code(s): 1611430453551. Code(s): Z22.330 - CARRIER OF GROUP B STREPTOCOCCUS Status: Acute Current Visit: Yes. (3) Encounter for full-term uncomplicated delivery. SNOMED Code(s) : 28489656, 858879279. Code(s): O80 - ENCOUNTER FOR FULL-TERM UNCOMPLICATED DELIVERY Status: Acute Current Visit: Yes. (4) First degree perineal laceration. SNOMED Code(s): 04072744. Code(s): O70.0 - FIRST DEGREE PERINEAL LACERATION DURING DELIVERY Status: Acute Current Visit: Yes. - Problem List Review. Problem List Initiated/Reviewed/Updated: No. - My Orders. Last 24 Hours: My Active Orders. 06/06/18 08:15. Patient Status [ADT] Routine. Activity as Tolerated [RC] PFP. Communication Order [RC] ASDIRECTED. Non Stress Test [RC] PER UNIT ROUTINE. Notify Provider [RC] PFP. Notify Provider [RC] PRN. Vital Signs [RC] PER UNIT ROUTINE. Lactated Ringers [ Ringers, Lactated] 1,000 ml IV ASDIRECTED. Nalbuphine [Nubain] 10 mg IVPUSH Q2H PRN. Oxytocin/Lactated Ringers [Pitocin in LR 10 Units/1,000 ML] 10 unit in 1,000 ml IV .CONTINUOUS. Oxytocin/Lactated Ringers [Pitocin in LR 10 Units/1 ,000 ML] 10 unit in 1,000 ml IV TITRATE. Sodium Chloride 0.9% [Saline Flush] 10 ml FLUSH ASDIRECTED PRN. Electronic Heart Tones Ext w TOCO [WOMSER] Routine. Electronic Heart Tones Internal [WOMSER] Per Unit Routine. Peripheral IV Insertion Adult [OM.PC] Routine. Resuscitation Status Routine. 06/06/18 08:16. Heart Tones [RC] ASDIRECTED. Peripheral IV Care [RC] . DIRECTED. 06/06/18 12:45. Ampicillin 1 gm Sodium Chloride 0.9% [Normal Saline] 100 ml IV Q4H. 06/06/18 Breakfast. Regular Diet [DIET]. - Plan. Plan :: Plan induction and delivery. Diagnosis: Stroke: No - Discharge Data Discharge Date: 06/07/18 Discharge Disposition: Home, Self-Care 01 Condition: Good - Discharge Diagnosis/Problem(s) (1) 38 weeks gestation of SNOMED Code(s): 89219657 ICD Code: Z3A.38 - 38 WEEKS GESTATION OF Status: Acute Current Visit: Yes (2) GBS carrier SNOMED Code(s): 7054170729727 ICD 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 - CARRIER OF GROUP B STREPTOCOCCUS Status: Acute Current Visit: Yes (3) Encounter for full-term uncomplicated delivery SNOMED Code(s): 24344616, 866846083 ICD Code: O80 - ENCOUNTER FOR FULL-TERM UNCOMPLICATED DELIVERY Status: Acute Current Visit: Yes (4) First degree perineal laceration SNOMED Code(s): 89522220 ICD Code: O70.0 - FIRST DEGREE PERINEAL LACERATION DURING DELIVERY Status: Acute Current Visit: Yes - Patient Summary/Data Complications: none Consults: none Hospital Course: uneventful - Patient Instructions Diet: Usual Diet as Tolerated Driving: Do Not Drive (x48 hrs) Showering/Bathing: May Shower Notify Provider of: Fever, Increased Pain, Swelling and Redness, Drainage, Nausea and/or Vomiting - Discharge Plan *PRESCRIPTION DRUG MONITORING PROGRAM REVIEWED*: Not Applicable *COPY OF PRESCRIPTION DRUG MONITORING REPORT IN PATIENT [place]: Not Applicable Home Medications: Home Meds Benzocaine/Menthol [Dermoplast Pain Relief [place]] 1 canister TOP ASDIRECTED PRN #1 canister 11/17/13 [Rx] Docusate Sodium [Colace] 100 mg PO BID PRN #12 cap 11/17/13 [Rx] Ibuprofen [Motrin] 600 mg PO Q4H PRN #16 tablet 11/17/13 [Rx] Lanolin [Lansinoh HPA] 1 gm TOP ASDIRECTED PRN #1 11/17/13 [Rx] Witch Joselin [Tucks] 1 pad TOP ASDIRECTED PRN #1 pad 11/17/13 [Rx] Acetaminophen [Tylenol] 650 mg PO Q6H PRN tablet 06/07/18 [Rx] Benzocaine/Menthol [Dermoplast Pain Relief [place]] 1 spray TOP ASDIRECTED PRN canister 06/07/18 [Rx] Docusate Sodium [Colace] 100 mg PO BID PRN cap 06/07/18 [Rx] Ibuprofen [Motrin] 600 mg PO Q6H PRN tablet 06/07/18 [Rx] Lanolin [Lansinoh HPA] 1 applic TOP ASDIRECTED PRN tube 06/07/18 [Rx] Witch Joselin [Tucks] 1 pad TOP ASDIRECTED PRN pad 06/07/18 [Rx] Referrals: Kostas Thurman MD [Primary Care Provider] - - Discharge Summary/Plan Comment DC Time >30 min.: No - Patient Data Vitals - Most Recent: Last Vital Signs Temp 98.2 F 06/07/18 02:39 Pulse 80 06/07/18 02:39 Resp 14 06/07/18 02:39 BP 134/83 06/07/18 02:39 Pulse Ox 99 06/07/18 02:39 Weight - Most Recent: 167 lb I&O - Last 24 hours: Intake & Output 06/06/18 06/07/18 06/07/18 22:59 06:59 14:59 Intake Total 3700 Balance 3700 Lab Results - Last 24 hrs: Laboratory Results - last 24 hr 06/06/18 06/06/18 06/06/18 Range/Units 08:47 08:47 08:47 WBC 8.10 (3.98-10.04) K/mm3 RBC 4.00 (3.98-5.22) M/mm3 Hgb 11.5 (11.2-15.7) gm/L Hct 34.7 (34.1-44.9) % MCV 86.8 (79.4-94.8) fl MCH 28.8 (25.6-32.2) pg MCHC 33.1 (32.2-35.5) g/dl RDW Std Deviation 38.8 (36.4-46.3) fL Plt Count 142 L (182-369) K/mm3 MPV 10.7 (9.4-12.3) fl Neut % (Auto) 67.3 (34.0-71.1) % Lymph % (Auto) 22.0 (19.3-51.7) % [place] % (Auto) 9.4 (4.7-12.5) % Eos % (Auto) 1.0 (0.7-5.8) Baso % (Auto) 0.1 (0.1-1.2) % Neut # (Auto) 5.45 (1.56-6.13) K/mm3 Lymph # (Auto) 1.78 (1.18-3.74) K/mm3 [place] # (Auto) 0.76 H (0.24-0.36) K/mm3 Eos # (Auto) 0.08 (0.04-0.36) K/mm3 Baso # (Auto) 0.01 (0.01-0.08) K/mm3 RPR Non-reactive (NONREACTIVE) Blood Type A POSITIVE Gel Antibody Screen Negative 06/07/18 Range/Units 06:00 WBC 13.20 H (3.98-10.04) K/mm3 RBC 3.25 L (3.98-5.22) M/mm3 Hgb 9.3 L (11.2-15.7) gm/L Hct 28.2 L (34.1-44.9) % MCV 86.8 (79.4-94.8) fl MCH 28.6 (25.6-32.2) pg MCHC 33.0 (32.2-35.5) g/dl RDW Std Deviation 37.9 (36.4-46.3) fL Plt Count 138 L (182-369) K/mm3 MPV 10.9 (9.4-12.3) fl Neut % (Auto) 71.8 H (34.0-71.1) % Lymph % (Auto) 18.6 L (19.3-51.7) % [place] % (Auto) 8.2 (4.7-12.5) % Eos % (Auto) 1.0 (0.7-5.8) Baso % (Auto) 0.2 (0.1-1.2) % Neut # (Auto) 9.49 H (1.56-6.13) K/mm3 Lymph # (Auto) 2.45 (1.18-3.74) K/mm3 [place] # (Auto) 1.08 H (0.24-0.36) K/mm3 Eos # (Auto) 0.13 (0.04-0.36) K/mm3 Baso # (Auto) 0.02 (0.01-0.08) K/mm3 RPR (NONREACTIVE) Blood Type Gel Antibody Screen Med Orders - Current: Current Medications Acetaminophen (Tylenol) 650 mg PO Q4H PRN PRN Reason: mild pain or fever Benzocaine/Menthol (Dermoplast Pain Relief [place]) 0 gm TOP ASDIRECTED PRN PRN Reason: Perineal Comfort Measure Docusate Sodium (Colace) 100 mg PO BID PRN PRN Reason: Constipation Emollient Ointment (Lansinoh Hpa) 0 gm TOP ASDIRECTED PRN PRN Reason: Sore Nipples Last Admin: 06/07/18 06:36 Dose: 1 tube Ibuprofen (Motrin) 600 mg PO Q4H PRN PRN Reason: Mild pain or fever Last Admin: 06/07/18 06:30 Dose: 600 mg Oxycodone/Acetaminophen (Percocet 325-5 Mg) 2 tab PO Q4H PRN PRN Reason: Pain (moderate 4-6) Witch Joselin (Tucks) 1 pad TOP ASDIRECTED PRN PRN Reason: Hemorrhoid pain Discontinued Medications Diphenhydramine HCl (Benadryl) 25 mg IVPUSH Q6H PRN PRN Reason: Pruritis Ephedrine Sulfate (Ephedrine Sulfate) 5 mg IVPUSH ASDIRECTED PRN PRN Reason: Hypotension Fentanyl (Sublimaze) 100 mcg EPIDUR Q3H PRN PRN Reason: Pain Last Admin: 06/06/18 14:02 Dose: 100 mcg Fentanyl/Bupivacaine HCl (Zmqprwsg-Wmetb-Ze 2 Mcg/Ml-0.125%) 100 ml EP ASDIRECTED JENNIFER Last Admin: 06/06/18 14:03 Dose: 100 ml Ampicillin Sodium 2 gm/ Sodium (Chloride) 100 mls @ 200 mls/hr IV ONETIME ONE Stop: 06/06/18 08:44 Last Admin: 06/06/18 08:35 Dose: 200 mls/hr Ampicillin Sodium 1 gm/ Sodium (Chloride) 100 mls @ 200 mls/hr IV Q4H JENNIFER Last Admin: 06/06/18 12:51 Dose: 200 mls/hr Lactated Ringer's (Ringers, Lactated) 1,000 mls @ 100 mls/hr IV ASDIRECTED JENNIFER Last Admin: 06/06/18 15:07 Dose: 100 mls/hr Oxytocin/Lactated Ringer's (Pitocin In Lr 10 Units/1,000 Ml) 10 unit in 1,000 mls @ 12 mls/hr IV TITRATE JENNIFER; Protocol Last Admin: 06/06/18 15:09 Dose: 2 munits/min, 12 mls/hr Oxytocin/Lactated Ringer's (Pitocin In Lr 10 Units/1,000 Ml) 10 unit in 1,000 mls @ 100 mls/hr IV .CONTINUOUS JENNIFER Lidocaine HCl (Xylocaine-Mpf 1%) 50 ml INJECT ONETIME ONE Stop: 06/06/18 16:18 Misoprostol (Cytotec) Confirm Administered Dose 50 mcg .ROUTE .STK-MED ONE Stop: 06/06/18 08:06 Last Admin: 06/06/18 08:35 Dose: Not Given Misoprostol (Cytotec) 25 mcg VAG ONETIME ONE Stop: 06/06/18 08:21 Last Admin: 06/06/18 08:07 Dose: 25 mcg Misoprostol (Cytotec) Confirm Administered Dose 25 mcg .ROUTE .STK-MED ONE Stop: 06/06/18 11:35 Misoprostol (Cytotec) 400 mcg PO ONETIME ONE Stop: 06/06/18 17:21 Last Admin: 06/06/18 17:20 Dose: 400 mcg Misoprostol (Cytotec) 200 mcg PO Q6H JENNIFER Last Admin: 06/07/18 00:56 Dose: 200 mcg Nalbuphine HCl (Nubain) 10 mg IVPUSH Q2H PRN PRN Reason: pain Ondansetron HCl (Zofran) 4 mg IVPUSH ONETIME PRN PRN Reason: Nausea/Vomiting Sodium Chloride (Saline Flush) 10 ml FLUSH ASDIRECTED PRN PRN Reason: Keep Vein Open
[2018-06-07 14:49] VITALS: BP 112/88
== END 2018-06-07 17:45 | disposition home or self-care (01) | DRG 807 ==
LOC: JD.OB 07:08 → OBSVTOIN 16:10 → JD.OB 16:11
PROVIDERS: ADMIT Obstetrics & Gynecology; ATTEND Obstetrics & Gynecology
PROC: 3E0P7VZ Introduction of Hormone into Female Reproductive, Via Natural or Artificial Opening (ICD-10-PCS; principal; 2018-06-06)
PROC: 10907ZC Drainage of Amniotic Fluid, Therapeutic from Products of Conception, Via Natural or Artificial Opening (ICD-10-PCS; principal; 2018-06-06)
PROC: 0HQ9XZZ Repair Perineum Skin, External Approach (ICD-10-PCS; principal; 2018-06-06)
PROC: 10E0XZZ Delivery of Products of Conception, External Approach (ICD-10-PCS; principal; 2018-06-06)
PROC: 3E033VJ Introduction of Other Hormone into Peripheral Vein, Percutaneous Approach (ICD-10-PCS; principal; 2018-06-06)
PROC: 00HU33Z Insertion of Infusion Device into Spinal Canal, Percutaneous Approach (ICD-10-PCS; 2018-06-06)
PROC: 3E0R3BZ Introduction of Anesthetic Agent into Spinal Canal, Percutaneous Approach (ICD-10-PCS; 2018-06-06)
DX: O99.824 Streptococcus B carrier state complicating childbirth (principal); Z37.0 Single live birth; O70.0 First degree perineal laceration during delivery; O99.62 Diseases of the digestive system complicating childbirth; Z3A.39 39 weeks gestation of pregnancy; K21.9 Gastro-esophageal reflux disease without esophagitis; Z87.440 Personal history of urinary (tract) infections
CPT/HCPCS: 01967; 36415; 51702; 59025; 59409; 85025; 86592; 86850; 86900; 86901; A9270-GY; J0290; J2590; J3010; J3490; J7030; J7120

== ENCOUNTER 2020-05-03 14:03 | Inpatient (IN) | payer OTHER ==
[2020-05-03] MEDS ORDERED: NIFEdipine 10 MG Cap ONE (14:28)
[2020-05-03] MEDS ORDERED: NIFEdipine 10 MG Cap PO ONE ×2 (14:48→15:36)
--- NOTE | 2020-05-03 15:27 | US ---
Biophysical profile: Multiple real-time images were obtained transabdominally. Comparison: Previous obstetrical ultrasound in 12/04/19. Dates: Working YOLI: 06/05/20, gestational age 35 weeks 2 days Current ultrasound: YOLI 06/09/20, gestational age 34 weeks 5 days presentation: Cephalic Placenta: Posterior Amniotic fluid: ARMIDA 14.3 cm Measurements: BPD: 8.56 cm - 34 weeks 4 days Head circumference: 31.09 cm - 34 weeks 6 days Abdominal circumference: 30.86 cm - 34 weeks 6 days Femur length: 6.66 cm - 34 weeks 1 day Estimated weight: 2460 g (5 lbs. 7 oz.), estimated weight at the 28th percentile for age by working YOLI and at the 41st percentile for age by current ultrasound Heart rate: 139 bpm Cervical length: 3.8 cm Growth curves: Various growth curves are mostly between the -2 and mean standard deviation lines. Growth is believed to be fairly appropriate from prior exam. Biophysical profile: movement 2, breathing movement 2, tone 2, amniotic fluid volume 2 Impression: 1. Single intrauterine fetus currently cephalic in presentation. Dates as noted above. 2. 8 out of 8 on biophysical profile. 3. growth is felt to be fairly appropriate from prior study. Diagnostic code #1
[2020-05-03] MEDS ORDERED: Betamethasone Acetate/Betamethasone Sod Phosphate 30 MG/5 ML MDV IM ONE (15:37)
[2020-05-03] MEDS ORDERED: NIFEdipine 10 MG Cap PO SCH (15:45)
--- NOTE | 2020-05-03 18:20 | PCM.LDHP ---
L&D History of Present Illness - General Date of Service: 05/03/20 Admit Problem/Dx: Patient Status Order with Admit Dx/Problem 05/03/20 14:18 Patient Status [ADT] Routine Admission Diagnosis/Problem Admission Diagnosis/Problem 05/03/20 18:00 Mavis is a 25-year-old 5 para 3-0-1-3 female who was evaluated on the afternoon of 05/03/2020 at 35-2/7 weeks gestational age with an YOLI of 06/05/2020. She was transferred by air ambulance showing [facility] for uterine bleeding in . Source of Information: Patient History Limitations: Reports: No Limitations - History of Present Illness Introduction:: Mavis is a 25-year-old 5 para 3-0-1-3 female who was evaluated on the afternoon of 05/03/2020 at 35-2/7 weeks gestational age with an YOLI of 06/05/2020. She was transferred by air ambulance showing [facility] for uterine bleeding in . She reports at approximately 1130 hrs. on 05/03/2020 she had abrupt onset of uterine bleeding which was enough to soak her pants and run down her legs. She is seen shortly thereafter by Dr. Mart Hernandez at [facility]. He evaluated vital signs which were stable, heart tones which were normal. She was noted to have bleeding and in his estimate she bled approximately 700 cc during the course of the time she was in the ED there. She had a couple contractions during the course of this time. As there are no surgical services, ultrasound on weekends, electronic monitoring or PASSPORT SUPPORT ASSOCIATE specialty care present there decision was to transfer the patient to a higher level of care. At that time arrangements were made for her to be transferred to [place] via air ambulance because of road conditions and lack of an ENT ambulance crew comfortable with this transfer. She was then transferred via [facility] air ambulance and arrived in [place] at approximately 1430 hrs. heart tones were reassuring upon admission and bedside ultrasound showed normal amniotic fluid and vertex presentation. Bladder was full. Sterile speculum exam showed cervix to be relatively closed. Approximately 30 cc were noted in the vaginal vault. After ultrasound confirmed a posterior and fundal placement of placenta as had been previously seen on her 21-week ultrasound a gentle digital exam was done and patient was found to be approximately 2+ centimeters dilated, 40% effaced, soft, very high at -5, mid to posterior position. There is no evidence of rupture membranes. Electronic monitoring showed reactive nonstress test. The patient was evaluated laboratory testing and a biophysical profile. B iophysical profile scored 8/8. Fluid specifically was generous. Baby is in vertex presentation. There was no evidence of a potential origin of the uterine bleeding. He was appropriate size for dates measuring at 34-5/7 weeks. Some contractions were noted. They have now increased somewhat in frequency. They are mild to moderate in intensity. Patient initially was given nifedipine 10 mg orally in [place], [place] for transport and she received 1 more dose of nifedipine 10 mg orally upon arrival here. Laboratory testing includes a CBC showing a white count 10.31. Her hemoglobin and hematocrit are 11.0 and 33.5 and platelets are 143,000. Creatinine 0.6. Uric acid 4.7. PT is normal at 10.3. INR is normal at 0.96. PTT is normal at 24.0. Her AST and ALT were obtained along with other preeclampsia labs because of hyperreflexia that was noted to be 3+/4 in bilateral lower extremities upon initial evaluation. Her COVID-19 testing was negative. Patient is evaluated 2 to 3 hours after admission. Her contractions have picked up somewhat but are still mild to moderate intensity somewhat irregular but coming every 3 to 8 minutes. The heart tones are reassuring. Cervix has mas ed minimally with line change possibly being a slight increase in effacement from 40 to 60%. Patient has been given 1 dose of betamethasone 12 mg IM. Nifedipine has been discontinued. Working diagnosis is possible low abruption of placenta. Bleeding has been approximately 10 to 25 cc over the last 1 to 2 hours. PASSPORT SUPPORT ASSOCIATE history: 5 para 3-0-1-3. Patient had menarche at approximately age 12. Cycles every 30 days. Her last menstrual period was certain and started on 08/30/2019. She is not using any control at the time of conception. She denies any STIs or abnormal Pap smears. Her obstetric history includes the followin. Female born 10/13/2011 at 41 weeks gestational age after 10 hours of labor. 7 pound 6 ounce infant born via NSVDepidural usedborn at [facility] in [place]-child's name is Elvira 2. Male infant born 11/15/2014 at 39 weeks gestational age after 22 hours of labor. 7 pound 1 ounce [facility] [place] 3. Miscarriage first trimester8 weeks gestation01/13/2017. 4. Female born 06/06/2019 at 39 weeks gestational age. Length of labor 5 hours. 7 pound 15 ounce born via NSVDepidural usedborn at [facility] in [place]. history: Patient was seen for her first visit at 13 weeks and 5 days. She was seen on a regular basis throughout the . She had an ultrasound done on 12/05/2019 which confirmed dates. It is supportive of her LMP dating. Second ultrasound done on 01/25/2020 at 20 weeks and 5days showed normal anatomy, ARMIDA, placenta was found to be posterior and normal in position. Cervix was 3.2 cm in length. Growth was appropriate. Patient is desiring epidural in labor. She declined genetic testing. She lives in [facility], she had a normal 1 hour GTT. She has a history of depression and is on sertraline 100 mg p.o. daily for this. It is well controlled with that therapy. Weight gain has been from 150.2 pounds to 162 pounds. Her blood pressures have been normal. Faint fundal height growth has been appropriate. Laboratory testing in shows blood to be a positive with a negative antibody screen. First hemoglobin is 13.8 g/dL and platelets are 230,000. She is rubella immune. RPR is nonreactive. Urine culture showed mixed murtaza. Hepatitis B surface antigen and HIV assays were both negative. Second trimester labs showed hemoglobin 11.6 g/dL at which time she was started on ferrous sulfate 325 mg p.o. daily. Her platelets then were 190,000 and her 1 hour GTT was normal at 84. RPR done 02/25/2020 was nonreactive. Group B strep screen was not done prior to today. It is pending at this time. Allergies: None Medications: 1. Ferrous sulfate 3 and 25 mg p.o. daily 2. Sertraline 100 mg p.o. daily 3. vitamins 1 p.o. daily Past medical history: 1. x3 2. Miscarriage x1 3. Seasonal allergies 4. Depression on sertraline with good results. Past surgical history: 1. Tonsillectomy 2004. Family history: Mother is alive and in good health. Father is secondary esophageal cancer was a smoker and a drinker. She has 3/2 sisters all alive and well. Maternal grandfather is secondary to heart attack at age 42. Maternal grandmother is alive but with dementia. Paternal grandfather is deceasedcause unknown. Paternal grandmother is deceasedsecondary to diabetic complications. There is no family history of cancer otherwise, anesthesia related issues, bleeding, clotting, related problems. Social history: Patient is . She is a [id number] mom. She has a college degree. She lives in [facility] with her family. Her 's name is Armando. She does not use any significant also alcohol, drugs or tobacco. Review of systems: Patient's main complaint is a uterine bleeding as described in the HPI. She reports good activity. Occasional contractions were noted upon transport but they have increased to more regular as also described in the HPI.. Skin: Negative Lungs: No infectious symptoms or shortness of breath Cardiovascular: No chest pain or exercise intolerance Breasts: No lumps, changes in size, pain, dimpling, discharge or axillary or supraclavicular concerns. GI: Negative : Vaginal bleeding Musculoskeletal: Negative Neurological: Negative Physical exam: In general the patient is well-developed, well-nourished, pleasant female of stated age in no acute distress. On last evaluation clinic patient's weight was 162 pounds with the pregravida weight of 150.2 pounds. Pregravid body mass index is 24.3 and height is 5 feet 5 inches. Skin is warm dry without lesions. HEENT, neck and back within normal limits. Lungs are clear with good breath sounds in all lung lawrence. Cardiovascular exam shows regular and rhythm without murmurs. Breast exam is deferred at this time having been done at first annual visit found to be normal. Patient does plan to breast-feed. Abdomen is gravid with fundal height consistent with dates. Baby in vertex presentation by Preet maneuvers and by transabdominal ultrasound done at bed side. Genital per sterile speculum showed about 30 cc of blood in the vagina. Some dark red blood has continued to come from the vagina with flow as described above. Careful digital exam done after ultrasound was confirmed to show a posterior fundal pressure placenta showed cervix to be dilated 2+ centimeters. Group B strep screen was done. Extremities are grossly within normal limits. Neurological exam is normal with the exception of 3+/4 deep tendon reflexes in bilateral lower extremities. - Related Data Allergies/Adverse Reactions: Allergies Allergy/AdvReac Type Severity Reaction Status Date / Time No Known Allergies Allergy Verified 05/03/20 14:45 Home Medications: Home Meds Ferrous Sulfate [Iron] 325 mg PO DAILY 05/03/20 [History] Pnv No.95/Ferrous Fum/Folic AC [ Tablet] 1 tab PO DAILY 05/03/20 [History] Sertraline HCl 100 mg PO DAILY 05/03/20 [History] Past Medical History HEENT History: Reports: Other (See Below) (tonsillectomy 2004) Genitourinary History: Reports: Other (See Below) (H/O UTIs in ) PASSPORT SUPPORT ASSOCIATE History: Reports: , Spontaneous Social & Family History - Family History Family Medical History: No Pertinent Family History H&P Review of Systems - Review of Systems: Review Of Systems: See Below L&D Exam - Exam Exam: See Below - Vital Signs Vital Signs: Last Vital Signs Temp 36.9 C 05/03/20 14:18 Pulse 81 05/03/20 14:18 Resp 16 05/03/20 14:18 BP 112/76 05/03/20 15:47 Pulse Ox 96 05/03/20 14:18 Weight: 74.843 kg - Patient Data Lab Results Last 24 hrs: Laboratory Results - last 24 hr 05/03/20 05/03/20 05/03/20 Range/Units 14:06 14:06 14:10 WBC 10.31 H (3.98-10.04) K/mm3 RBC 3.71 L (3.98-5.22) M/mm3 Hgb 11.0 L (11.2-15.7) gm/dl Hct 33.5 L (34.1-44.9) % MCV 90.3 (79.4-94.8) fl MCH 29.6 (25.6-32.2) pg MCHC 32.8 (32.2-35.5) g/dl RDW Std Deviation 40.8 (36.4-46.3) fL Plt Count 143 L (182-369) K/mm3 MPV 10.4 (9.4-12.3) fl Neut % (Auto) 77.5 H (34.0-71.1) % Lymph % (Auto) 15.3 L (19.3-51.7) % [place] % (Auto) 6.2 (4.7-12.5) % Eos % (Auto) 0.5 L (0.7-5.8) Baso % (Auto) 0.2 (0.1-1.2) % Neut # (Auto) 7.99 H (1.56-6.13) K/mm3 Lymph # (Auto) 1.58 (1.18-3.74) K/mm3 [place] # (Auto) 0.64 H (0.24-0.36) K/mm3 Eos # (Auto) 0.05 (0.04-0.36) K/mm3 Baso # (Auto) 0.02 (0.01-0.08) K/mm3 PT (9.7-12.0) SECONDS INR APTT (21.7-31.4) SECONDS BUN 10 (7-18) mg/dL Creatinine 0.6 (0.55-1.02) mg/dL Est Cr Clr Drug Dosing TNP Estimated GFR (MDRD) > 60 (>60) mL/min Uric Acid 4.7 (2.6-6.0) mg/dL AST 15 (15-37) U/L ALT 13 L (14-59) U/L Lactate Dehydrogenase 160 (81-234) U/L SARS-CoV-2 RNA (VENECIA) (NEGATIVE) Blood Type A POSITIVE Gel Antibody Screen Negative 05/03/20 05/03/20 Range/Units 14:26 15:12 WBC (3.98-10.04) K/mm3 RBC (3.98-5.22) M/mm3 Hgb (11.2-15.7) gm/dl Hct (34.1-44.9) % MCV (79.4-94.8) fl MCH (25.6-32.2) pg MCHC (32.2-35.5) g/dl RDW Std Deviation (36.4-46.3) fL Plt Count (182-369) K/mm3 MPV (9.4-12.3) fl Neut % (Auto) (34.0-71.1) % Lymph % (Auto) (19.3-51.7) % [place] % (Auto) (4.7-12.5) % Eos % (Auto) (0.7-5.8) Baso % (Auto) (0.1-1.2) % Neut # (Auto) (1.56-6.13) K/mm3 Lymph # (Auto) (1.18-3.74) K/mm3 [place] # (Auto) (0.24-0.36) K/mm3 Eos # (Auto) (0.04-0.36) K/mm3 Baso # (Auto) (0.01-0.08) K/mm3 PT 10.3 (9.7-12.0) SECONDS INR 0.96 APTT 24.2 (21.7-31.4) SECONDS BUN (7-18) mg/dL Creatinine (0.55-1.02) mg/dL Est Cr Clr Drug Dosing Estimated GFR (MDRD) (>60) mL/min Uric Acid (2.6-6.0) mg/dL AST (15-37) U/L ALT (14-59) U/L Lactate Dehydrogenase (81-234) U/L SARS-CoV-2 RNA (VENECIA) Negative (NEGATIVE) Blood Type Gel Antibody Screen Result Diagrams: 05/03/20 14:10 05/03/20 14:06 Problem List Initiated/Reviewed/Updated: Yes Orders Last 24hrs: Active Orders 24 hr Category Date Time Status Patient Status [ADT] Routine ADT 05/03/20 14:18 Active Non Stress Test [RC] PER UNIT ROUTINE Care 05/03/20 14:18 Active Vital Signs [RC] PER UNIT ROUTINE Care 05/03/20 14:18 Active GROUP B STREP BY PCR [MOLEC] Routine Lab 05/03/20 14:09 Received PROTEIN/CREATININE RATIO,URINE [URCHEM] Stat Lab 05/03/20 14:21 Ordered NIFEdipine [Procardia] Med 05/03/20 15:45 Active 10 mg PO Q4H PIH Panel [OM.PC] Stat Oth 05/03/20 14:21 Ordered Resuscitation Status Routine Resus Stat 05/03/20 14:18 Ordered Medication Orders Nifedipine (Procardia) 10 mg PO Q4H JENNIFER Last Admin: 05/03/20 15:51 Dose: Not Given Documented by: JOSIE Assessment/Plan Comment:: 1. 35-2/7-week intrauterine with vaginal bleeding of significant amountsuspected 700 cc plus. Differential diagnosis includes abruption of placenta. Doubt at this time vasa previa or placenta previa. 2. monitoring including BPP score of 8/8 and NST being reactive is very reassuring. Contractions are noted as described above. 3. Blood is a positive. Not a candidate for Rh immunoglobulin therapy. 4. Patient plans to breast-feed 5. Patient has received betamethasone 12 mg IM 6. No significant change in cervix over the last 2 to 3 hours despite some contractions. 7. No evidence of coagulopathy. Platelets are mildly decreased at 143,000. Plan: 1. Continuous monitoring of heart tones. 2. Monitor for compromise, increased uterine bleeding. If either these occur will proceed to emergent section. 3. Conservative management at this time because of minimal bleeding noted and reassuring testing. If patient's progresses in labor will allow this to proceed and allow her to deliver. Dr. Braden, tinning machine set up operator mailing section clerk, has been made aware of her situation. 4. We will recheck coags and CBC at approximately 2100 hrs. 5. Support breast-feeding decision 6. Have discussed in detail a primary section in the event that it were to be needed. The procedure, risk, benefits, alternatives of care and follow-up were discussed Also discussed with the patient is the gestational age of 35-2/7 weeks. Risk factors including pulmonary immaturity and possible need for additional support or even transfer are discussed with patient 7. If patient is still undelivered in 24 hours will give second dose of betamethasone. 8. If patient makes significant cervical change and group B strep screen has not returned will proceed with ampicillin group B strep prophylaxis per protocol.
[2020-05-03] MEDS ORDERED: Nalbuphine 10 MG/1 ML Vial IVPUSH PRN (18:44)
[2020-05-03] MEDS: Calcium Carbonate 500 MG Tab.Chew PO PRN (19:46)
[2020-05-03] MEDS ORDERED: Acetaminophen 325 MG Tab PO PRN (22:43)
[2020-05-03] MEDS: Lactated Ringers 1,000 ML IV SCH (23:52)
[2020-05-04] MEDS: Lactated Ringers 1,000 ML IV SCH ×3 (03:34→08:58)
[2020-05-04] MEDS ORDERED: Ampicillin 2 GM in Sodium Chloride 0.9% 100 ML IV ONE (03:42)
[2020-05-04] MEDS ORDERED: Ampicillin 2 GM AdvVial IV ONE (03:43)
[2020-05-04] MEDS ORDERED: diphenhydrAMINE 50 MG/ML SDV IVPUSH PRN (03:44)
[2020-05-04] MEDS ORDERED: Bupivacaine/fentaNYL/NS 100 ML Bag EPIDUR PRN (03:44)
[2020-05-04] MEDS ORDERED: fentaNYL 100 MCG/2 ML SDV EPIDUR PRN (03:44)
[2020-05-04] MEDS: Calcium Carbonate 500 MG Tab.Chew PO PRN (03:48)
--- NOTE | 2020-05-04 04:23 | PCM.PREANE ---
Preanesthetic Assessment - Procedure Proposed Procedure: Labor Epidural - Anesthesia/Transfusion/Family Hx Anesthesia History: Prior Anesthesia Without Reaction Family History of Anesthesia Reaction: No Transfusion History: No Prior Transfusion(s) - Review of Systems General: No Symptoms Pulmonary: No Symptoms Cardiovascular: No Symptoms Gastrointestinal: No Symptoms (GERD) Neurological: No Symptoms Other: Reports: None - Physical Assessment Vital Signs: Last Vital Signs Temp 36.9 C 05/03/20 14:18 Pulse 81 05/03/20 14:18 Resp 16 05/03/20 14:18 BP 112/76 05/03/20 15:47 Pulse Ox 96 05/03/20 14:18 Height: 1.65 m Weight: 73.482 kg ASA Class: 2 Mental Status: Alert & Oriented x3 Airway Class: Mallampati = 2 Dentition: Reports: Normal Dentition Thyro-Mental Finger Breadths: 3 Mouth Opening Finger Breadths: 3 ROM/Head Extension: Full Lungs: Clear to Auscultation, Normal Respiratory Effort Cardiovascular: Regular Rate, Regular Rhythm - Lab Values: Laboratory Last Values WBC 12.68 K/mm3 (3.98-10.04) H 05/03/20 21:00 RBC 3.83 M/mm3 (3.98-5.22) L 05/03/20 21:00 Hgb 11.3 gm/dl (11.2-15.7) 05/03/20 21:00 Hct 34.4 % (34.1-44.9) 05/03/20 21:00 MCV 89.8 fl (79.4-94.8) 05/03/20 21:00 MCH 29.5 pg (25.6-32.2) 05/03/20 21:00 MCHC 32.8 g/dl (32.2-35.5) 05/03/20 21:00 RDW Std Deviation 41.5 fL (36.4-46.3) 05/03/20 21:00 Plt Count 167 K/mm3 (182-369) L 05/03/20 21:00 MPV 10.2 fl (9.4-12.3) 05/03/20 21:00 Neut % (Auto) 91.1 % (34.0-71.1) H 05/03/20 21:00 Lymph % (Auto) 7.8 % (19.3-51.7) L 05/03/20 21:00 [place] % (Auto) 0.8 % (4.7-12.5) L 05/03/20 21:00 Eos % (Auto) 0 (0.7-5.8) L 05/03/20 21:00 Baso % (Auto) 0.0 % (0.1-1.2) L 05/03/20 21:00 Neut # (Auto) 11.55 K/mm3 (1.56-6.13) H 05/03/20 21:00 Lymph # (Auto) 0.99 K/mm3 (1.18-3.74) L 05/03/20 21:00 [place] # (Auto) 0.10 K/mm3 (0.24-0.36) L 05/03/20 21:00 Eos # (Auto) 0.00 K/mm3 (0.04-0.36) L 05/03/20 21:00 Baso # (Auto) 0.00 K/mm3 (0.01-0.08) L 05/03/20 21:00 Manual Slide Review Abnormal smear 05/03/20 21:00 PT 10.3 SECONDS (9.7-12.0) 05/03/20 21:00 INR 0.96 05/03/20 21:00 APTT 24.0 SECONDS (21.7-31.4) 05/03/20 21:00 BUN 10 mg/dL (7-18) 05/03/20 14:06 Creatinine 0.6 mg/dL (0.55-1.02) 05/03/20 14:06 Est Cr Clr Drug Dosing TNP 05/03/20 14:06 Estimated GFR (MDRD) > 60 mL/min (>60) 05/03/20 14:06 Uric Acid 4.7 mg/dL (2.6-6.0) 05/03/20 14:06 AST 15 U/L (15-37) 05/03/20 14:06 ALT 13 U/L (14-59) L 05/03/20 14:06 Lactate Dehydrogenase 160 U/L (81-234) 05/03/20 14:06 Ur Random Creatinine 46.3 mg/dL (30.0-125.0) 05/03/20 21:00 U Random Total Protein < 6.0 mg/dL (0.0-11.8) 05/03/20 21:00 Protein/Creatinin Ratio TNP 05/03/20 21:00 SARS-CoV-2 RNA (VENECIA) Negative (NEGATIVE) 05/03/20 14:26 Blood Type A POSITIVE 05/03/20 14:06 Gel Antibody Screen Negative 05/03/20 14:06 - Allergies Allergies/Adverse Reactions: Allergies Allergy/AdvReac Type Severity Reaction Status Date / Time No Known Allergies Allergy Verified 05/03/20 14:45 - Anesthesia Plan Pre-Op Medication Ordered: None - Acknowledgements Anesthesia Type Planned: Epidural Pt an Appropriate Candidate for the Planned Anesthesia: Yes Alternatives and Risks of Anesthesia Discussed w Pt/Guardian: Yes Pt/Guardian Understands and Agrees with Anesthesia Plan: Yes PreAnesthesia Questionnaire HEENT History: Reports: Other (See Below) (tonsillectomy 2004) Genitourinary History: Reports: Other (See Below) (H/O UTIs in ) 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: , Spontaneous Psychiatric History: Reports: Anxiety, Depression - Past Surgical History HEENT Surgical History: Reports: Tonsillectomy - SUBSTANCE USE Tobacco Use Status *Q: Never Tobacco User Second Hand Smoke Exposure: No Recreational Drug Use History: No - HOME MEDS Home Medications: Home Meds Ferrous Sulfate [Iron] 325 mg PO DAILY 05/03/20 [History] Pnv No.95/Ferrous Fum/Folic AC [ Tablet] 1 tab PO DAILY 05/03/20 [History] Sertraline HCl 100 mg PO DAILY 05/03/20 [History] - CURRENT (IN HOUSE) MEDS Current Meds: Current Medications Acetaminophen (Tylenol) 650 mg PO Q4H PRN PRN Reason: Pain Last Admin: 05/03/20 23:12 Dose: 650 mg Documented by: Calcium Carbonate/Glycine (Tums) 1,000 mg PO Q2H PRN PRN Reason: Indigestion Last Admin: 05/04/20 03:48 Dose: 1,000 mg Documented by: Diphenhydramine HCl (Benadryl) 25 mg IVPUSH Q6H PRN PRN Reason: pruritis Ephedrine Sulfate (Ephedrine Sulfate) 5 mg IVPUSH ASDIRECTED PRN PRN Reason: Hypotension Fentanyl (Sublimaze) 100 mcg EPIDUR Q3H PRN PRN Reason: Pain Last Admin: 05/04/20 03:53 Dose: 100 mcg Documented by: Fentanyl/Bupivacaine HCl (Fentanyl/Bupivacaine/Ns 2 Mcg-0.125% 100 Ml) 100 ml EPIDUR ASDIRECTED PRN PRN Reason: Pain Last Admin: 05/04/20 03:53 Dose: 100 ml Documented by: Lactated Ringer's (Ringers, Lactated) 1,000 mls @ 125 mls/hr IV ASDIRECTED JENNIFER Last Admin: 05/04/20 03:34 Dose: 125 mls/hr Documented by: Ampicillin Sodium 1 gm/ Sodium (Chloride) 100 mls @ 200 mls/hr IV Q4H JENNIFER Nalbuphine HCl (Nubain) 10 mg IVPUSH Q3H PRN PRN Reason: Pain Discontinued Medications Ampicillin Sodium (Ampicillin) Confirm Administered Dose 2 gm IV .STK-MED ONE Stop: 05/04/20 03:44 Betamethasone Acet/Betameth SodPhos (Celestone Soluspan 6 Mg/Ml) 12 mg IM ONETIME ONE Stop: 05/03/20 15:38 Last Admin: 05/03/20 15:50 Dose: 12 mg Documented by: Ampicillin Sodium 2 gm/ Sodium (Chloride) 100 mls @ 200 mls/hr IV ONETIME ONE Stop: 05/04/20 04:11 Last Admin: 05/04/20 03:48 Dose: 200 mls/hr Documented by: Nifedipine (Procardia) Confirm Administered Dose 10 mg .ROUTE .STK-MED ONE Stop: 05/03/20 14:29 Last Admin: 05/03/20 15:02 Dose: Not Given Documented by: Nifedipine (Procardia) 10 mg PO ONETIME ONE Stop: 05/03/20 14:49 Last Admin: 05/03/20 14:30 Dose: 10 mg Documented by: Nifedipine (Procardia) 10 mg PO ONETIME ONE Stop: 05/03/20 15:37 Last Admin: 05/03/20 15:47 Dose: 10 mg Documented by: Nifedipine (Procardia) 10 mg PO Q4H [facility] Last Admin: 05/03/20 15:51 Dose: Not Given Documented by:
[2020-05-04] MEDS: ePHEDrine 50 MG/ML SDV IVPUSH PRN ×3 (04:41→04:58)
--- NOTE | 2020-05-04 06:30 | PCM.SN.2 ---
- Free Text/Narrative Note: Labor progress note: Mavis has been henrique since last evening now at a rate of every 3 to 5 minutes with most of these moderate to strong in nature. Her bleeding has slowed to an acceptable level but blood is still present on exam. heart tones have been reassuring. She has received her first dose of prophylactic ampicillin. Discussion was again held with her as to her gestational age and potential for prematurity. The risks and benefits of transfer versus staying in [place] taking into account her gestational age of 35-1/2 weeks and a history of marked blood loss prior to and during the first portion of her admission to the hospital in [place] along with heart tones that have on occasion been less than optimal all discussed with her and her Armando. They are concerned about other transport and understand the potential risks of staying here. They wish to not be transferred at this time. Cervix is changed minimally with more effacement. Heart tones at the present time are reassuring. Nurse evaluation reveals cervix that is 3 cm, 80% effaced, -2, somewhat posterior, soft. Patient's vital signs are stable. Laboratory testing obtained at 2000 hrs. on 05/03/2020 show a CBC with a hemoglobin of 11.3 hematocrit 34.4 with platelets 167 and white count 12.68. These are improved over previous evaluation at the time of admission. Her protein creatinine ratio done with catheterized urine specimen is normal. PT is 10.3 INR is 0.96 and PTT is 240. Patient revealing no signs or symptoms of preeclampsia at this time. Assessment: 1. 35-3/7-week intrauterine , significant vaginal bleeding yesterday now has slowed to a manageable amount. Suspect small abruption of placenta. 2. heart tones now acceptable and reassuring. Contraction pattern shows contractions increased in frequency and intensity. Patient desired an epidural for analgesia. Contractions most probably result of uterine bleeding/probable abruptio placentae 3. No evidence of preeclampsia gestational hypertension or other potential etiology of abruption. Plan: 1. Anticipate . Patient is aware of the early gestational age and implications as far as pulmonary maturity of the baby is concerned. 2. Epidural for analgesia in labor 3. Closely monitor contractions, labor pattern. Intervene if increased bleeding recurs or abnormal heart tones ensue. 4. Have discussed with her the potential need for emergent section, its risks, benefits limitations and follow-up. She appears to understand and is excepting of this if needed.
[2020-05-04] MEDS ORDERED: Bupivacaine 0.25% 10 ML SDV ONE (08:00)
[2020-05-04] MEDS: Ampicillin 1 GM in Sodium Chloride 0.9% 100 ML IV SCH ×2 (08:13→11:55)
[2020-05-04] MEDS ORDERED: Oxytocin/Lactated Ringers 10 UNIT/1,000 ML BAG IV ONE (12:08)
--- NOTE | 2020-05-04 13:19 | PCM.SN.2 ---
- Free Text/Narrative Note: Delivery note: Mavis is a 25-year-old 5 para 3-0-1-3 female who was evaluated on the afternoon of 05/03/2020 at 35-2/7 weeks gestational age with an YOLI of 06/05/2020. She was transferred by air ambulance showing [facility] for uterine bleeding in . She reports at approximately 1130 hrs. on 05/03/2020 she had abrupt onset of uterine bleeding which was enough to soak her pants and run down her legs. She was transferred to [facility] air ambulance. At that time was noted to have approximately 124 cc of blood loss which had occurred in transit. heart tones were reassuring for the most part but on occasion had short periods of tachycardia. Contractions were noted and with time increased. She had been given nifedipine prior to transport and again after she arrived here in [place]. testing showed a BPP that was scored at 10/10. No evidence of the source of bleeding. Amniotic fluid appeared normal. The patient was 2 to 3 cm dilated at that time with soft cervix. Baby in vertex presentation by ultrasound and Preet maneuvers. Diagnosis was abruption of placenta with resultant labor. Patient initially had hyperreflexia and was evaluated for preeclampsia with this evaluation returning normal. Her blood pressures were normal throughout. Throughout the course of the evening she continued to have some bleeding but this was manageable. Her hemoglobin returned at 11+ and decision was made to monitor. With the amount of bleeding that she had had and some of the tachycardia episodes with fetus felt uncomfortable transferring the patient to a tertiary level center. Patient appeared to be in agreement of this and was aware of the potential for implications with the . Patient was continually monitored. Repeat CBC-hemoglobin and coags were drawn at 2000 hrs. and returned actually better than the first labs drawn upon admission in [place]. Previous labor had been only 5 hours and patient was concerned about rapid labor with this alone. She is monitored and contractions continued and increased in intensity. Her bleeding slowed and was maintained at a manageable amount. Patient went on to complete cervical dilation by approximately 1240 hrs. on 05/04/2020. She pushed during 2 contractions and delivered a viable, gomez, male with Apgars of 5, 5 and 7. Baby had a length of 18 inches, a weight of grams (6 pounds, 0 ounces). The baby delivered in a direct occiput anterior position. Baby was placed on mom's abdomen for approximately 1 minute. Initial heart rate and respiratory rate were good. The umbilical cord was clamped x2 and cut by the baby's father Armando. The baby was taken to the warmer for evaluation by Dr. Braden, hammer adjuster. Placenta delivered almost immediately after the baby at 1254 hrs. in a Brenner presentation. It appeared intact and complete and was noted to have a clot behind the membranes. Findings most probably consistent with abruption of placenta. Pitocin had been started after delivery of the baby IV. There is run at 500 cc/h. There was a 200 cc clot that was delivered with the placenta. Terminal amniotic fluid that came after the baby was blood-tinged. Condition: Good. Estimated blood loss from delivery was 200 cc with approximately 200 cc clot following the placenta. Patient plans to breast-feed.
[2020-05-04] MEDS ORDERED: Docusate Sodium 100 MG Cap PO PRN (14:01)
[2020-05-04] MEDS ORDERED: Witch Hazel Medicated Pads 40/Jar TOP PRN (14:01)
[2020-05-04] MEDS ORDERED: Benzocaine/Menthol 20%-0.5% Spray 56 GM Canister TOP PRN (14:01)
[2020-05-04] MEDS ORDERED: Acetaminophen 325 MG Tab PO PRN (14:01)
[2020-05-04] MEDS: Ibuprofen 600 MG Tab PO PRN (14:17)
[2020-05-05] MEDS: Ibuprofen 600 MG Tab PO PRN ×2 (02:29→14:03)
--- NOTE | 2020-05-05 07:30 | PCM48HPAN ---
Post Anesthesia Note - EVALUATION WITHIN 48HRS OF ANESTHETIC Vital Signs in Normal Range: Yes Patient Participated in Evaluation: Yes Respiratory Function Stable: Yes Airway Patent: Yes Cardiovascular Function Stable: Yes Hydration Status Stable: Yes Pain Control Satisfactory: Yes Nausea and Vomiting Control Satisfactory: Yes Mental Status Recovered: Yes Vital Signs: Last Vital Signs Temp 36.3 C 05/05/20 02:07 Pulse 73 05/05/20 02:07 Resp 16 05/05/20 02:07 BP 126/82 05/05/20 02:07 Pulse Ox 97 05/05/20 02:07 - COMMENTS/OBSERVATIONS Free Text/Narrative:: NO ANESTHESIA COMPLICATIONS NOTED
[2020-05-05] MEDS ORDERED: Sertraline 50 MG Tab PO SCH ×2 (09:00→20:00)
[2020-05-05] MEDS: Prenatal Multivitamin with Calcium/Folic Acid/Iron Tab PO SCH (10:52)
--- NOTE | 2020-05-05 12:25 | PCM.SN.2 ---
- Free Text/Narrative Note: note: Patient is doing well in the period. Minimal lochia, voiding well, ambulated without problems. Nursing without concerns. Patient is afebrile, vital signs are stable Abdomen is flat, soft, uterus is below the umbilicus and is firm and nontender. Legs are nontender. Assessment: recovery going well. Plan: Routine care. Patient be discharged home within the next 24-48 hours.
--- NOTE | 2020-05-06 06:51 | PCM.DCSUM1 ---
Discharge Summary - Hospital Course Free Text/Narrative:: Mavis is a 25-year-old 5 para 3-0-1-3 female who was evaluated on the afternoon of 05/03/2020 at 35-2/7 weeks gestational age with an YOLI of 06/05/2020. She was transferred by air ambulance showing [facility] for uterine bleeding in . She reports at approximately 1130 hrs. on 05/03/2020 she had abrupt onset of uterine bleeding which was enough to soak her pants and run down her legs. She was transferred to [facility] air ambulance. At that time was noted to have approximately 124 cc of blood loss which had occurred in transit. heart tones were reassuring for the most part but on occasion had short periods of tachycardia. Contractions were noted and with time increased. She had been given nifedipine prior to transport and again after she arrived here in [place]. testing showed a BPP that was scored at 10/10. No evidence of the source of bleeding. Amniotic fluid appeared normal. The patient was 2 to 3 cm dilated at that time with soft cervix. Baby in vertex presentation by ultrasound and Preet maneuvers. Working diagnosis was abruption of placenta with resultant labor. Patient initially had hyperreflexia and was evaluated for preeclampsia, with this evaluation returning normal. Her blood pressures were normal throughout. Throughout the course of the evening she continued to have some bleeding but this was manageable. Her hemoglobin returned at 11+ and decision was made to monitor. With the amount of bleeding that she had had and some of the tachycardia episodes with fetus felt uncomfortable transferring the patient to a tertiary level center. Patient appeared to be in agreement of this and was aware of the potential for implications with the . Patient was continually monitored. Repeat CBC-hemoglobin and coags were drawn at 2000 hrs. and returned actually better than the first labs drawn upon admission in [place]. Previous labor had been only 5 hours and patient was concerned about rapid labor with this alone. She is monitored and contractions continued and increased in intensity. Her bleeding slowed and was maintained at a manageable amount. Patient went on to complete cervical dilation by approximately 1240 hrs. on 05/04/2020. She pushed during 2 contractions and delivered a viable, gomez, male infant with Apgars of 5, 5 and 7. Baby had a length of 18 inches, a weight of grams (6 pounds, 0 ounces). The baby delivered in a direct occiput anterior position. Baby was placed on mom's abdomen for approximately 1 minute. Initial heart rate and respiratory rate were good. The umbilical cord was clamped x2 and cut by the baby's father Armando. The baby was taken to the warmer for evaluation by Dr. Braden, concrete paver. Placenta delivered almost immediately after the baby at 1254 hrs. in a Brenner presentation. It appeared intact and complete and was noted to have a clot behind the membranes. Findings most probably consistent with abruption of placenta. Pitocin had been started after delivery of the baby IV. There is run at 500 cc/h. There was a 200 cc clot that was delivered with the placenta. Terminal amniotic fluid that came after the baby was blood-tinged. Estimated blood loss from delivery was 200 cc with approximately 200 cc clot following the placenta. patient is done very well. She is nursing/pumping without problems. She is ambulating well, has minimal lochia and is voiding without concerns. She is desiring discharge home. She is understand that they may have to stay until he is feeding well. Patient plans to breast-feed. Condition: Good - Discharge Data Discharge Date: 05/06/20 Discharge Disposition: Home, Self-Care 01 Condition: Good - Referral to Home Health Primary Care Physician: PCP Not In Area - Patient Instructions Diet: Regular Diet as Tolerated (Nursing diet with increased calories and calcium as directed) Activity: As Tolerated (No intercourse or tampons until bleeding resolves) Driving: May Drive Today Showering/Bathing: May Shower Showering/Bathing, Other: May take a bath Notify Provider of: Fever, Increased Pain, Swelling and Redness - Discharge Plan Home Medications: Home Meds Ferrous Sulfate [Iron] 325 mg PO DAILY 05/03/20 [History] Pnv No.95/Ferrous Fum/Folic AC [ Tablet] 1 tab PO DAILY 05/03/20 [History] Sertraline HCl 100 mg PO DAILY 05/03/20 [History] Acetaminophen [Tylenol] 650 mg PO Q4H PRN tablet 05/06/20 [Rx] Ibuprofen [Motrin] 600 mg PO Q4H PRN tablet 05/06/20 [Rx] - Discharge Summary/Plan Comment DC Time >30 min.: Yes Discharge Summary/Plan Comment: Discharge instructions: 1. Discharge home 2. Diet, activity and follow-up discussed with patient. Recommend nursing diet with increased calories and calcium. 3. Precautions given concern increased pain, bleeding, temperature, signs/symptoms of DVT/PE. 4. Medications per home medication was printed, discussed with and given to the patient. 5. Return to clinic-Dr. [facility] in [place] in 2-6 weeks. Diagnosis: Term -delivered Condition: Good - Patient Data Vitals - Most Recent: Last Vital Signs Temp 36.4 C 05/05/20 08:10 Pulse 90 05/05/20 08:10 Resp 16 05/05/20 08:10 BP 118/77 05/05/20 08:10 Pulse Ox 97 05/05/20 08:10 Weight - Most Recent: 73.482 kg I&O - Last 24 hours: Intake & Output 05/05/20 05/05/20 05/06/20 14:59 22:59 06:59 Intake Total 900 Balance 900 Med Orders - Current: Current Medications Acetaminophen (Tylenol) 650 mg PO Q4H PRN PRN Reason: mild pain or fever Benzocaine/Menthol (Dermoplast Pain Relief [place]) 0 gm TOP ASDIRECTED PRN PRN Reason: Perineal Comfort Measure Last Admin: 05/04/20 14:18 Dose: 1 can Documented by: Docusate Sodium (Colace) 100 mg PO BID PRN PRN Reason: Constipation Ibuprofen (Motrin) 600 mg PO Q4H PRN PRN Reason: Mild pain or fever Last Admin: 05/05/20 14:03 Dose: 600 mg Documented by: [place] Multivit/Labelle/Iron/Folic Ac ( Plus Iron) 1 each PO DAILY [facility] Last Admin: 05/05/20 10:52 Dose: Not Given Documented by: Sertraline HCl (Zoloft) 100 mg PO DAILY@1999 [facility] Last Admin: 05/05/20 21:46 Dose: 100 mg Documented by: Artie Olivera (Yassine) 1 pad TOP ASDIRECTED PRN PRN Reason: Perineal Comfort Measure Last Admin: 05/04/20 14:18 Dose: 1 tub Documented by: Discontinued Medications Acetaminophen (Tylenol) 650 mg PO Q4H PRN PRN Reason: Pain Last Admin: 05/03/20 23:12 Dose: 650 mg Documented by: Ampicillin Sodium (Ampicillin) Confirm Administered Dose 2 gm IV .STK-MED ONE Stop: 05/04/20 03:44 Last Admin: 05/04/20 05:42 Dose: Not Given Documented by: Betamethasone Acet/Betameth SodPhos (Celestone Soluspan 6 Mg/Ml) 12 mg IM ONETIME ONE Stop: 05/03/20 15:38 Last Admin: 05/03/20 15:50 Dose: 12 mg Documented by: Bupivacaine HCl (Sensorcaine-Mpf 0.25%) 10 ml .ROUTE .STK-MED ONE Stop: 05/04/20 08:01 Calcium Carbonate/Glycine (Tums) 1,000 mg PO Q2H PRN PRN Reason: Indigestion Last Admin: 05/04/20 03:48 Dose: 1,000 mg Documented by: Diphenhydramine HCl (Benadryl) 25 mg IVPUSH Q6H PRN PRN Reason: pruritis Ephedrine Sulfate (Ephedrine Sulfate) 5 mg IVPUSH ASDIRECTED PRN PRN Reason: Hypotension Last Admin: 05/04/20 04:58 Dose: 5 mg Documented by: Fentanyl (Sublimaze) 100 mcg EPIDUR Q3H PRN PRN Reason: Pain Last Admin: 05/04/20 03:53 Dose: 100 mcg Documented by: Fentanyl/Bupivacaine HCl (Fentanyl/Bupivacaine/Ns 2 Mcg-0.125% 100 Ml) 100 ml EPIDUR ASDIRECTED PRN PRN Reason: Pain Last Admin: 05/04/20 03:53 Dose: 100 ml Documented by: Lactated Ringer's (Ringers, Lactated) 1,000 mls @ 125 mls/hr IV ASDIRECTED [facility] Last Admin: 05/04/20 08:58 Dose: 125 mls/hr Documented by: Ampicillin Sodium 2 gm/ Sodium (Chloride) 100 mls @ 200 mls/hr IV ONETIME ONE Stop: 05/04/20 04:11 Last Admin: 05/04/20 03:48 Dose: 200 mls/hr Documented by: Ampicillin Sodium 1 gm/ Sodium (Chloride) 100 mls @ 200 mls/hr IV Q4H [facility] Last Admin: 05/04/20 11:55 Dose: 200 mls/hr Documented by: Oxytocin/Lactated Ringer's (Pitocin In Lr 10 Units/1,000 Ml) Confirm Administered Dose 10 unit in 1,000 mls @ as directed IV .STK-MED ONE Stop: 05/04/20 12:09 Nalbuphine HCl (Nubain) 10 mg IVPUSH Q3H PRN PRN Reason: Pain Nifedipine (Procardia) Confirm Administered Dose 10 mg .ROUTE .STK-MED ONE Stop: 05/03/20 14:29 Last Admin: 05/03/20 15:02 Dose: Not Given Documented by: Nifedipine (Procardia) 10 mg PO ONETIME ONE Stop: 05/03/20 14:49 Last Admin: 05/03/20 14:30 Dose: 10 mg Documented by: Nifedipine (Procardia) 10 mg PO ONETIME ONE Stop: 05/03/20 15:37 Last Admin: 05/03/20 15:47 Dose: 10 mg Documented by: Nifedipine (Procardia) 10 mg PO Q4H [facility] Last Admin: 05/03/20 15:51 Dose: Not Given Documented by: Sertraline HCl (Zoloft) 100 mg PO DAILY [facility] Last Admin: 05/05/20 11:33 Dose: Not Given Documented by:
[2020-05-06] MEDS: Ibuprofen 600 MG Tab PO PRN (08:49)
[2020-05-06] MEDS: Prenatal Multivitamin with Calcium/Folic Acid/Iron Tab PO SCH (08:49)
[2020-05-06 11:40] VITALS: BP 119/96; PULSE 74
== END 2020-05-06 15:00 | disposition home or self-care (01) | DRG 805 ==
LOC: JD.OB 14:03 → JD.OBCHECK 14:03 → JD.OB 05-04 02:30 → OBSVTOIN 05-04 12:50 → JD.OB 05-04 12:51
PROVIDERS: ADMIT Obstetrics & Gynecology; ATTEND Obstetrics & Gynecology
PROC: 10E0XZZ Delivery of Products of Conception, External Approach (ICD-10-PCS; principal; 2020-05-04)
PROC: 10907ZC Drainage of Amniotic Fluid, Therapeutic from Products of Conception, Via Natural or Artificial Opening (ICD-10-PCS; 2020-05-04)
PROC: 3E0R3BZ Introduction of Anesthetic Agent into Spinal Canal, Percutaneous Approach (ICD-10-PCS; 2020-05-04)
PROC: 00HU33Z Insertion of Infusion Device into Spinal Canal, Percutaneous Approach (ICD-10-PCS; 2020-05-04)
DX: O60.14X0 Preterm labor third trimester with preterm delivery third trimester, not applicable or unspecified (principal); O45.93 Premature separation of placenta, unspecified, third trimester; Z37.0 Single live birth; Z3A.35 35 weeks gestation of pregnancy; Z20.822 Contact with and (suspected) exposure to COVID-19
CPT/HCPCS: 01967; 36415; 51701; 51702; 59025; 59409; 76816; 76818; 76818-26; 82565; 82570; 83615; 84156; 84450; 84460; 84520; 84550; 85025; 85610; 85730; 86850; 86900; 86901; 87653; 96360; 96361; 96372; A9270-GY; J0290; J0702; J3010; J3490; J7050; J7120; U0002